=== PATIENT | male | born 1935 | race Caucasian/White ===

== ENCOUNTER 2017-10-13 08:40 | Inpatient (IN) | payer OTHER, BC ==
--- NOTE | 2017-10-13 09:02 | PDOC ---
History of Present Illness - General Chief Complaint: Urinary Problem Stated Complaint: urinary retention Time Seen by Provider: 10/13/17 08:41 History Source: Patient, Family Exam Limitations: No Limitations - History of Present Illness Initial Comments: 10/13/17 08:57 Patient is a bit hard of hearing, but it does not compromise good communication. His brother is with him and is assisting with the history. CHIEF COMPLAINT: Inability to urinate since this morning. HISTORY OF PRESENT ILLNESS: This is an 82-year-old man with a history of coronary artery disease in the past status post coronary stents. Patient was in his usual state of health until last evening. He decided not to go out for dinner because he developed shaking chills and rigors with teeth tattering. There was no fever however. This morning he got up from bed and tried to urinate but was only able to pass a few small dribbles. There was no blood. There was no dysuria. He continues to be unable to urinate and does have a mild sense of urgency. There is still no fever. No flank pain. No nausea or vomiting. He did have a urinary tract infection once many years ago. There is no history of prostate disease. REVIEW OF SYSTEMS: GENERAL/CONSTITUTIONAL: Positive chills last night. No fever. No further chills or fever today. No weakness. No weight change. HEAD, EYES, EARS, NOSE AND THROAT: Positive history of eye disease. No ear pain or discharge. No sore throat. CARDIOVASCULAR: No chest pain or shortness of breath. Positive history of coronary stents. RESPIRATORY: No cough, wheezing, or hemoptysis. Armor smoker, quit. GASTROINTESTINAL: No nausea, vomiting, diarrhea or constipation. No rectal bleeding. GENITOURINARY: Positive urinary hesitancy. Unable to pass urine. No dysuria. No hematuria. MUSCULOSKELETAL: No joint or muscle swelling or pain. No neck or back pain. SKIN AND BREASTS: No rash or easy bruising. NEUROLOGIC: No headache, vertigo, loss of consciousness, or loss of sensation. PSYCHIATRIC: No depression or anxiety. ENDOCRINE: No increased thirst. No abnormal weight change. HEMATOLOGIC/LYMPHATIC: No anemia, easy bleeding, or history of blood clots. ALLERGIC/IMMUNOLOGIC: No hives or skin allergy. No latex allergy. Past History - Past Medical History Allergies/Adverse Reactions: Allergies Allergy/AdvReac Type Severity Reaction Status Date / Time Penicillins Allergy Unknown Verified 10/13/17 08:42 Home Medications: Ambulatory Orders Allopurinol [Zyloprim -] 100 mg PO BID 08/27/14 Amlodipine Besylate [Norvasc -] 10 mg PO DAILY 08/27/14 Chlorthalidone 25 mg PO DAILY 08/27/14 Clopidogrel Bisulfate [Clopidogrel] 75 mg PO Q2D 08/27/14 Linagliptin [Tradjenta] 5 mg PO DAILY 08/27/14 Metoprolol Tartrate [Lopressor -] 25 mg PO BID 08/27/14 Tamsulosin HCl [Flomax] 0.4 mg PO DAILY 08/27/14 Valsartan [Diovan] 320 mg PO DAILY 08/27/14 Insulin Glargine,Hum.rec.anlog [Touestephanieo Solostar] 35 unit SQ DAILY 10/13/17 Lorazepam 0.5 mg PO QID PRN 10/13/17 Prednisolone 1% Ophthalmic [Pred Forte 1% -] 5 ml OP QID 10/13/17 Cardiac Disorders: Yes ([place], CAD with coronary stents.) COPD: No Diabetes: Yes GI Disorders: Yes (DIVERTICULOSIS) HTN: Yes Hypercholesterolemia: Yes - Surgical History Cardiac Surgery: Yes (2 STENTS) - Immunization History Immunization Up to Date: Yes - Suicide/Smoking/Psychosocial Hx Smoking History: Former smoker Have you smoked in the past 12 months: No Number of Cigarettes Smoked Daily: 0 Information on smoking cessation initiated: No Hx Alcohol Use: No Drug/Substance Use Hx: No Substance Use Type: None Hx Substance Use Treatment: No *Physical Exam - Vital Signs Last Vital Signs Temp Pulse Resp BP Pulse Ox 98.3 F 106 H 16 145/87 95 10/13/17 08:41 10/13/17 08:41 10/13/17 08:41 10/13/17 08:41 10/13/17 08:41 - Physical Exam Comments: 10/13/17 09:01 GENERAL: The patient is awake, alert, and fully oriented, in no acute distress. He is mildly hard of hearing, but able to communicate. HEAD: Normal with no signs of trauma. EYES: Right pupil with surgical changes. Left pupil normal, round and reactive to light, extraocular movements intact, sclera anicteric, conjunctiva clear. ENT: Ears normal, nares patent, oropharynx clear without exudates. Moist mucous membranes. NECK: Normal range of motion, supple without lymphadenopathy, JVD, or masses. LUNGS: Breath sounds equal, clear to auscultation bilaterally. No wheezes, and no crackles. HEART: Regular rate and rhythm, normal S1 and S2 without murmur, rub or gallop. ABDOMEN: Soft, nontender, normoactive bowel sounds. No guarding, no rebound. No masses. Minimal fullness in the suprapubic region. No tenderness in the suprapubic region. BACK: No CVA tenderness or flank tenderness. EXTREMITIES: Normal range of motion, trace pitting ankle edema. No clubbing or cyanosis. No cords, erythema, or tenderness. NEUROLOGICAL: Cranial nerves II through XII grossly intact. Normal speech, normal gait. PSYCH: Normal mood, normal affect. SKIN: Warm, Dry, normal turgor, no rashes or lesions noted. Bedside ultrasound with scan of the bladder reveals bladder to be 6 cm x 12 cm x 11 cm. Rangel catheter to be placed. Heart Score/ECG Review - ECG Intrepretation Comment:: 10/13/17 10:30 Twelve-lead EKG was performed. The rhythm is normal sinus rhythm with occasional immature atrial beats. The axis is leftward. The intervals are normal. There is poor R-wave progression in leads V1 and V2. There is transition in V5. There are no acute ST elevations or depressions. There are no abnormal T waves. Impression: Sinus rhythm with premature atrial beats, possible septal infarct, age indeterminate. Old EKG tracing requested. 10/13/17 11:17 There is no old EKG available for comparison. ED Treatment Course - LABORATORY CBC & Chemistry Diagram: 10/13/17 09:20 10/13/17 09:43 Medical Decision Making - Medical Decision Making 10/13/17 09:02 82-year-old man with no prior history of prostate disease, but one prior episode of UTI many years ago. Patient presents with urinary retention and difficulty passing urine, only able to pass small dribbles of urine. Rangel catheter to be placed based on bedside ultrasound showing some urinary retention. 10/13/17 11:18 White blood cell is markedly elevated with left shift. Urinalysis with greater than 100 white blood cells. Patient with probable urinary tract infection, possible bacteremia. He will be admitted for IV antibiotics. Levaquin ordered. Rangel catheter is in place with good drainage. Chemistry results still pending. Lactate pending. *DC/Admit/Observation/Transfer Diagnosis at time of Disposition: Rigors UTI (urinary tract infection) Qualifiers: Urinary tract infection type: acute cystitis Hematuria presence: without hematuria Qualified Code(s): N30.00 - Acute cystitis without hematuria - Discharge Dispostion Condition at time of disposition: Fair Admit: Yes Decision to Admit order Date/Time: 10/13/17 11:20 [facility] - Referrals - Patient Instructions - Post Discharge Activity
[2017-10-13 09:25] LABS: PH,URINE 5.5 (4.5-8); URINE BILIRUBIN Negative (NEGATIVE); URINE GLUCOSE (UA) Negative (NEGATIVE); URINE KETONE Negative (NEGATIVE); URINE LEUK ESTERASE Negative (NEGATIVE); URINE NITRITE Negative (NEGATIVE)
[2017-10-13 09:27] LABS: URINE APPEARANCE SL CLOUDY; URINE BLOOD 1+ (NEGATIVE); URINE COLOR AMBER; URINE PROTEIN 3+ (NEGATIVE)
[2017-10-13 09:28] LABS: MCH 31.1 pg (25.7-33.7); MCHC 33.8 g/dl (32.0-35.9); MEAN PLT VOLUME 8.6 fl (7.5-11.1); PLATELET COUNT 183 K/MM3 (134-434); RDW 14.1 % (11.9-15.9)
[2017-10-13 09:59] LABS: URINE BACTERIA MANY /hpf (NEGATIVE); URINE WBC >100 (0-2)
[2017-10-13] MEDS ORDERED: LEVOFLOXACIN 500 MG IVPB 500 MG/100 ML BAG IVPB ONE ×2 (09:59→10:37)
[2017-10-13 10:13] LABS: PLATELET ESTIMATE ADEQUATE
[2017-10-13 11:06] LABS: ALK PHOS 75 U/L (32-92); ANION GAP 9 (8-16); BILIRUBIN,TOTAL 1.4 mg/dl (0.2-1.0); CALCIUM 7.8 mg/dl (8.4-10.2); CO2 21 mmol/L (22-28); CREATININE 0.9 mg/dl (0.6-1.3); GLUCOSE,RANDOM 64 mg/dl (74-106); SGOT/AST 22 U/L (10-42); SGPT/ALT 17 U/L (10-40); TOT PROT 6.1 g/dl (6.4-8.3)
[2017-10-13] MEDS ORDERED: LORazepam 0.5 MG TABLET PO PRN ×2 (12:08→13:29)
[2017-10-13] MEDS ORDERED: ACETAMINOPHEN 325 MG TABLET (FP) PO PRN (12:11)
--- NOTE | 2017-10-13 12:11 | HP ---
CHIEF COMPLAINT: Unable to urinate PCP: Dr. Jax Calles ([place]) HISTORY OF PRESENT ILLNESS: This is an 82 year old male with a history of IDDM, HTN, HLD, and CAD s/p SD and stents x 2. He reports that many years ago he had some difficulty urinating, was seen by a urologist, and was placed on Flomax; he denies any other urologic history or recent symptoms. He presents today complaining of chills last night, followed by suprapubic pain and inability to urinate this morning. On arrival to the ED, u/s showed retention of approximately 600mL urine; Rangel catheter was inserted with relief. ER course was also notable for: (1) + SIRS criteria: HR 106, WBC 19 (2) UA indicative of UTI wiht >100 WBCs (3) Started on Levaquin (PCN allergy) Recent Travel: None PAST MEDICAL HISTORY: As above PAST SURGICAL HISTORY: Hip replacement x 6, knee replacement x 1, stents x 2, recent right eye surgery for repair of retinal detachment Social History: Retired biomedical engineer Smoking: Quit smoking "a few weeks ago"; smoked approx 1/2 pack day x 20 yrs Alcohol: Occasional Allergies Penicillins Allergy (Unknown, Verified 10/13/17 08:42) HOME MEDICATIONS: Home Medications Medication Instructions Recorded Allopurinol [Zyloprim -] 100 mg PO BID 08/27/14 Amlodipine Besylate [Norvasc -] 10 mg PO DAILY 08/27/14 Chlorthalidone 25 mg PO DAILY 08/27/14 Clopidogrel Bisulfate [Clopidogrel] 75 mg PO Q2D 08/27/14 Linagliptin [Tradjenta] 5 mg PO DAILY 08/27/14 Metoprolol Tartrate [Lopressor -] 25 mg PO BID 08/27/14 Tamsulosin HCl [Flomax] 0.4 mg PO DAILY 08/27/14 Valsartan [Diovan] 320 mg PO DAILY 08/27/14 Insulin Glargine,Hum.rec.anlog 35 unit SQ DAILY 10/13/17 [Mikel Gottlieb] Lorazepam 0.5 mg PO QID PRN 10/13/17 Prednisolone 1% Ophthalmic [Pred 5 ml OP QID 10/13/17 Forte 1% -] REVIEW OF SYSTEMS CONSTITUTIONAL: Chills/rigors, generalized weakness, fatigue Absent: chills, diaphoresis, loss of appetite, weight change HEENT: Absent: rhinorrhea, nasal congestion, throat pain, throat swelling, difficulty swallowing, mouth swelling, ear pain, eye pain, visual changes CARDIOVASCULAR: Absent: chest pain, syncope, palpitations, irregular heart rate, lightheadedness , peripheral edema RESPIRATORY: Absent: cough, shortness of breath, dyspnea with exertion, orthopnea, wheezing, stridor, hemoptysis GASTROINTESTINAL: Absent: abdominal pain, abdominal distension, nausea, vomiting, diarrhea, constipation, melena, hematochezia GENITOURINARY: Suprapubic pain, urinary retention Absent: hematuria, flank pain, genital pain MUSCULOSKELETAL: Absent: myalgia, arthralgia, joint swelling, back pain, neck pain SKIN: Absent: rash, itching, pallor HEMATOLOGIC/IMMUNOLOGIC: Absent: easy bleeding, easy bruising, lymphadenopathy, frequent infections ENDOCRINE: Absent: unexplained weight gain, unexplained weight loss, heat intolerance, cold intolerance NEUROLOGIC: Absent: headache, focal weakness or paresthesias, dizziness, unsteady gait, seizure, mental status changes, bladder or bowel incontinence PSYCHIATRIC: Absent: anxiety, depression, suicidal or homicidal ideation, hallucinations. PHYSICAL EXAMINATION Vital Signs - 24 hr 10/13/17 10/13/17 08:41 11:06 Temperature 98.3 F 98.9 F Pulse Rate 106 H Pulse Rate [ 105 H Right] Respiratory 16 Rate Blood Pressure 145/87 Blood Pressure 152/83 [Left Arm] O2 Sat by Pulse 95 94 L Oximetry (%) GENERAL: Awake, alert, and fully oriented, in no acute distress. HEAD: Normal with no signs of trauma. EYES: Pupils equal, round and reactive to light, extraocular movements intact, sclera anicteric, conjunctiva clear. No lid lag. EARS, NOSE, THROAT: Ears normal, nares patent, oropharynx clear without exudates. Moist mucous membranes. NECK: Normal range of motion, supple without lymphadenopathy, JVD, or masses. LUNGS: Breath sounds equal, clear to auscultation bilaterally. No wheezes, and no crackles. No accessory muscle use. HEART: Regular rate and rhythm, normal S1 and S2 without murmur, rub or gallop. ABDOMEN: Soft, nontender (including suprapubic region), not distended, normoactive bowel sounds, no guarding, no rebound, no masses. No hepatomegaly or splenomegaly. MUSCULOSKELETAL: Normal range of motion at all joints. No bony deformities or tenderness. No CVA tenderness. UPPER EXTREMITIES: 2+ pulses, warm, well-perfused. No cyanosis. No clubbing. No peripheral edema. LOWER EXTREMITIES: 2+ pulses, warm, well-perfused. No calf tenderness. No peripheral edema. NEUROLOGICAL: Cranial nerves II-XII intact. Normal speech. Gait not tested. PSYCHIATRIC: Cooperative. Good eye contact. Appropriate mood and affect. SKIN: Warm, dry, normal turgor, no rashes or lesions noted, normal capillary refill. Laboratory Results - last 24 hr 10/13/17 10/13/17 10/13/17 09:20 09:20 09:20 WBC 19.0 H D RBC 4.72 D Hgb 14.7 D Hct 43.5 D MCV 92.0 MCH 31.1 MCHC 33.8 RDW 14.1 Plt Count 183 MPV 8.6 Neutrophils % 80.0 D Neutrophils % (Manual) 80.0 Band Neutrophils % 5.0 Lymphocytes % 10.0 D Lymphocytes % (Manual) 10.0 Monocytes % 4.0 Monocytes % (Manual) 4 Eosinophils % 1.0 Eosinophils % (Manual) 1.0 Basophils % Advertising Solicitor Platelet Estimate Adequate Sodium Cancelled Potassium Cancelled Chloride Cancelled Carbon Dioxide Cancelled Anion Gap Cancelled BUN Cancelled Creatinine Cancelled Creat Clearance w eGFR Cancelled Random Glucose Cancelled Lactic Acid Calcium Cancelled Total Bilirubin Cancelled AST Cancelled ALT Cancelled Alkaline Phosphatase Cancelled Total Protein Cancelled Albumin Cancelled Urine Color Mary Urine Appearance Sl cloudy Urine pH 5.5 Ur Specific [place] 1.025 Urine Protein 3+ H Urine Glucose (UA) Negative Urine Ketones Negative Urine Blood 1+ H Urine Nitrite Negative Urine Bilirubin Negative Urine Urobilinogen 1.0 Ur Leukocyte Esterase Negative Urine RBC 5-10 Urine WBC >100 Ur Epithelial Cells Few Urine Bacteria Many 10/13/17 10/13/17 09:43 10:35 WBC RBC Hgb Hct MCV MCH MCHC RDW Plt Count MPV Neutrophils % Neutrophils % (Manual) Band Neutrophils % Lymphocytes % Lymphocytes % (Manual) Monocytes % Monocytes % (Manual) Eosinophils % Eosinophils % (Manual) Basophils % Platelet Estimate Sodium 136 Potassium 3.8 Chloride 106 Carbon Dioxide 21 L Anion Gap 9 BUN 14 D Creatinine 0.9 D Creat Clearance w eGFR > 60 Random Glucose 64 L D Lactic Acid 1.2 Calcium 7.8 L Total Bilirubin 1.4 H D AST 22 ALT 17 D Alkaline Phosphatase 75 Total Protein 6.1 L Albumin 3.0 L Urine Color Urine Appearance Urine pH Ur Specific [place] Urine Protein Urine Glucose (UA) Urine Ketones Urine Blood Urine Nitrite Urine Bilirubin Urine Urobilinogen Ur Leukocyte Esterase Urine RBC Urine WBC Ur Epithelial Cells Urine Bacteria ASSESSMENT/PLAN: 82 year old male with urinary retention and sepsis secondary to UTI. 1. Urinary retention -Approx 600 mL in bladder, Rangel inserted with relief of discomfort -Continue Flomax -Trial of void tomorrow 2. Sepsis secondary to UTI -Levaquin 500mg IVPB daily (PCN allergy) -Follow up blood and urine cultures -Trend WBC, fever curve -Hold diuretic for now in setting of sepsis 3. HTN -Continue Norvasc 4. DM -Continue glargine -ISS -Diabetic diet DISPO: Requires inpatient services. Temp 101.4 15:00 after Tylenol. Will give ibuprofen 400mg x 1. Visit type - Emergency Visit Emergency Visit: Yes ED Registration Date: 10/13/17 Care time: The patient presented to the Emergency Department on the above date and was hospitalized for further evaluation of their emergent condition. - New Patient This patient is new to me today: Yes Date on this admission: 10/14/17 - Critical Care Critical Care patient: No
[2017-10-13] MEDS ORDERED: ONDANSETRON 4 MG/2 ML VIAL IVPUSH PRN (12:12)
[2017-10-13] MEDS: PATIENT'S OWN MEDICATION (NON-FORMULARY) (Insulin Glargine,Hum.Rec.Anlog [Toujeo Solostar] SQ SCH (13:51)
[2017-10-13] MEDS ORDERED: TAMSULOSIN HCL 0.4 MG CAP.ER.24H (FP) ONE (13:52)
[2017-10-13] MEDS: TAMSULOSIN HCL 0.4 MG CAP.ER.24H (FP) PO SCH (13:56)
[2017-10-13] MEDS ORDERED: ACETAMINOPHEN 325 MG TABLET (FP) ONE (14:42)
[2017-10-13] MEDS ORDERED: ACETAMINOPHEN 325 MG TABLET (FP) PO ONE (14:49)
[2017-10-13] MEDS ORDERED: IBUPROFEN 400 MG TABLET (FP) PO ONE (15:15)
[2017-10-13 15:32] VITALS: BMI 30.8
[2017-10-13] MEDS: prednisoLONE ACETATE 1% OPHTH SUSP 5 ML BOTTLE OS SCH ×3 (17:58→21:20)
[2017-10-13] MEDS ORDERED: REFRIGERATED ANITBIOTICS ONE (18:20)
[2017-10-13] MEDS: DOCUSATE SODIUM 100 MG CAPSULE (FP) PO SCH ×2 (19:19→21:21)
[2017-10-13] MEDS: INSULIN SLIDING SCALE (NOVOLOG) 1 VIAL SQ SCH ×2 (19:22→22:44)
[2017-10-13] MEDS: METOPROLOL TARTRATE 25 MG TABLET (FP) PO SCH (21:21)
[2017-10-13] MEDS: ALLOPURINOL 100 MG TABLET (FP) PO SCH (21:22)
[2017-10-13] MEDS: HEPARIN NA (PORCINE) 5,000 UNITS/ML 1ML VIAL SQ SCH (21:22)
--- NOTE | 2017-10-13 22:28 | EKG ---
Test Reason : Blood Pressure : / mmHG Vent. Rate : 091 BPM Atrial Rate : 091 BPM P-R Int : 198 ms QRS Dur : 102 ms QT Int : 376 ms P-R-T Axes : 022 -46 022 degrees QTc Int : 462 ms SINUS RHYTHM WITH PREMATURE ATRIAL COMPLEXES LEFT AXIS DEVIATION SEPTAL INFARCT , AGE UNDETERMINED ABNORMAL ECG NO PREVIOUS ECGS AVAILABLE Confirmed by GIAN PILLAI MD ([id number]) on 10/13/2017 10:28:37 PM Referred By: DARIO IBARRA Confirmed By:GIAN PILLAI MD
[2017-10-14] MEDS: DOCUSATE SODIUM 100 MG CAPSULE (FP) PO SCH ×3 (06:44→22:18)
[2017-10-14] MEDS: INSULIN SLIDING SCALE (NOVOLOG) 1 VIAL SQ SCH ×4 (06:44→22:02)
[2017-10-14] MEDS: sitaGLIPtin PHOSPHATE 50 MG TABLET PO SCH (06:56)
[2017-10-14 09:08] LABS: EOSINOPHIL 0.9 % (0-4.5); MCH 31.2 pg (25.7-33.7); MCHC 33.5 g/dl (32.0-35.9); MEAN CELL VOLUME 93.1 fl (80-96); MEAN PLT VOLUME 10.5 fl (7.5-11.1); NEUTROPHILS 85.6 % (42.8-82.8); PLATELET COUNT 187 K/MM3 (134-434); RDW 14.1 % (11.9-15.9); WHITE BLOOD COUNT 20.5 K/mm3 (4.0-10.8)
--- NOTE | 2017-10-14 09:26 | PN ---
Physical Exam: SUBJECTIVE: Patient seen and examined. Subjective fever over night. Complaining of burning urethral pain. OBJECTIVE: WBC up slightly to 20.5. Vital Signs Period Temp Pulse Resp BP Sys/Cook Pulse Ox Last 24 Hr 97.9 F-101.2 F 72-105 18-20 120-160/59-86 91-94 GENERAL: The patient is awake, alert, and fully oriented, in some distress secondary to pain. HEAD: Normal with no signs of trauma. EYES: PERRL, extraocular movements intact, sclera anicteric, conjunctiva clear. No ptosis. ENT: Ears normal, nares patent, oropharynx clear without exudates, moist mucous membranes. NECK: Trachea midline, full range of motion, supple. LUNGS: Breath sounds equal, clear to auscultation bilaterally, no wheezes, no crackles, no accessory muscle use. HEART: Regular rate and rhythm, S1, S2 without murmur, rub or gallop. ABDOMEN: Soft, nontender, nondistended, normoactive bowel sounds, no guarding, no rebound, no hepatosplenomegaly, no masses. EXTREMITIES: 2+ pulses, warm, well-perfused, no edema. NEUROLOGICAL: Cranial nerves II through XII grossly intact. Normal speech, gait not observed. PSYCH: Normal mood, normal affect. SKIN: Warm, dry, normal turgor, no rashes or lesions noted Laboratory Results - last 24 hr 10/13/17 10/13/17 10/13/17 09:20 09:20 09:20 WBC 19.0 H D RBC 4.72 D Hgb 14.7 D Hct 43.5 D MCV 92.0 MCH 31.1 MCHC 33.8 RDW 14.1 Plt Count 183 MPV 8.6 Neutrophils % 80.0 D Neutrophils % (Manual) 80.0 Band Neutrophils % 5.0 Lymphocytes % 10.0 D Lymphocytes % (Manual) 10.0 Monocytes % 4.0 Monocytes % (Manual) 4 Eosinophils % 1.0 Eosinophils % (Manual) 1.0 Basophils % Marketing Development Manager Platelet Estimate Adequate Sodium Cancelled Potassium Cancelled Chloride Cancelled Carbon Dioxide Cancelled Anion Gap Cancelled BUN Cancelled Creatinine Cancelled Creat Clearance w eGFR Cancelled POC Glucometer Random Glucose Cancelled Lactic Acid Calcium Cancelled Total Bilirubin Cancelled AST Cancelled ALT Cancelled Alkaline Phosphatase Cancelled Total Protein Cancelled Albumin Cancelled Urine Color Mary Urine Appearance Sl cloudy Urine pH 5.5 Ur Specific [place] 1.025 Urine Protein 3+ H Urine Glucose (UA) Negative Urine Ketones Negative Urine Blood 1+ H Urine Nitrite Negative Urine Bilirubin Negative Urine Urobilinogen 1.0 Ur Leukocyte Esterase Negative Urine RBC 5-10 Urine WBC >100 Ur Epithelial Cells Few Urine Bacteria Many 10/13/17 10/13/17 10/13/17 09:43 10:35 17:38 WBC RBC Hgb Hct MCV MCH MCHC RDW Plt Count MPV Neutrophils % Neutrophils % (Manual) Band Neutrophils % Lymphocytes % Lymphocytes % (Manual) Monocytes % Monocytes % (Manual) Eosinophils % Eosinophils % (Manual) Basophils % Platelet Estimate Sodium 136 Potassium 3.8 Chloride 106 Carbon Dioxide 21 L Anion Gap 9 BUN 14 D Creatinine 0.9 D Creat Clearance w eGFR > 60 POC Glucometer 136 Random Glucose 64 L D Lactic Acid 1.2 Calcium 7.8 L Total Bilirubin 1.4 H D AST 22 ALT 17 D Alkaline Phosphatase 75 Total Protein 6.1 L Albumin 3.0 L Urine Color Urine Appearance Urine pH Ur Specific [place] Urine Protein Urine Glucose (UA) Urine Ketones Urine Blood Urine Nitrite Urine Bilirubin Urine Urobilinogen Ur Leukocyte Esterase Urine RBC Urine WBC Ur Epithelial Cells Urine Bacteria 10/13/17 10/14/17 10/14/17 21:18 05:48 06:00 WBC 20.5 H RBC 4.32 Hgb 13.5 Hct 40.2 MCV 93.1 MCH 31.2 MCHC 33.5 RDW 14.1 Plt Count 187 MPV 10.5 D Neutrophils % 85.6 H Neutrophils % (Manual) Band Neutrophils % Lymphocytes % 7.9 L D Lymphocytes % (Manual) Monocytes % 5.6 Monocytes % (Manual) Eosinophils % 0.9 Eosinophils % (Manual) Basophils % 0.0 Platelet Estimate Sodium Potassium Chloride Carbon Dioxide Anion Gap BUN Creatinine Creat Clearance w eGFR POC Glucometer 112 92 Random Glucose Lactic Acid Calcium Total Bilirubin AST ALT Alkaline Phosphatase Total Protein Albumin Urine Color Urine Appearance Urine pH Ur Specific [place] Urine Protein Urine Glucose (UA) Urine Ketones Urine Blood Urine Nitrite Urine Bilirubin Urine Urobilinogen Ur Leukocyte Esterase Urine RBC Urine WBC Ur Epithelial Cells Urine Bacteria Active Medications Generic Name Dose Route Start Last Admin Trade Name Freq PRN Reason Stop Dose Admin Acetaminophen 650 mg 10/13/17 12:11 Tylenol - PO Q4H PRN FEVER OR PAIN Allopurinol 100 mg 10/13/17 22:00 10/13/17 21:22 Zyloprim - PO 100 mg BID [facility] Administration Amlodipine Besylate 10 mg 10/14/17 10:00 Norvasc - PO DAILY [facility] Clopidogrel Bisulfate 75 mg 10/15/17 10:00 Plavix - PO Q2D [facility] Docusate Sodium 100 mg 10/13/17 14:00 10/14/17 06:44 Colace - PO 100 mg TID [facility] Administration Heparin Sodium (Porcine) 5,000 unit 10/13/17 22:00 10/13/17 21:22 Heparin - SQ 5,000 unit BID [facility] Administration Levofloxacin 500 mg in 100 mls @ 100 mls/hr 10/14/17 10:00 Levaquin 500 Mg Premixed Ivpb - IVPB 10/20/17 09:59 DAILY [facility] Insulin Aspart 1 vial 10/13/17 16:30 10/14/17 06:44 Novolog Vial Sliding Scale - SQ Not Given ACHS [facility] Protocol Lorazepam 0.5 mg 10/13/17 13:29 Ativan - PO 10/16/17 13:28 QID PRN ANXIETY Metoprolol Tartrate 25 mg 10/13/17 22:00 10/13/17 21:21 Lopressor - PO 25 mg BID [facility] Administration Non-Formulary Medication 35 unit 10/13/17 12:15 10/13/17 13:51 Insulin Glargine,Hum.Rec.Anlog [Mikel Gottlieb] SQ Not Given DAILY [facility] Ondansetron HCl 4 mg 10/13/17 12:12 Zofran Injection IVPUSH Q6H PRN NAUSEA Prednisolone Acetate 1 drop 10/13/17 14:00 10/13/17 21:20 Pred Forte 1% - OS 1 drop QID [facility] Administration Sitagliptin Phosphate 100 mg 10/14/17 07:00 10/14/17 06:56 Januvia - PO 100 mg DAILY@0700 [facility] Administration Tamsulosin HCl 0.4 mg 10/13/17 12:15 10/13/17 13:56 Flomax - PO 0.4 mg DAILY [facility] Administration Valsartan 320 mg 10/14/17 10:00 Diovan - PO DAILY [facility] ASSESSMENT/PLAN: 82 year old male with urinary retention and sepsis secondary to UTI. 1. Urinary retention -Maintain Rangel catheter for now -Continue Flomax -Trial of void when infection improving -Lidocaine jelly and oxycodone prn urethral pain 2. Sepsis secondary to UTI -WBC rising on Levaquin, changed to Ceftriaxone in consultation with ID -Follow up blood and urine cultures -Trend WBC, fever curve -Hold diuretic for now in setting of sepsis 3. HTN -Continue Norvasc 4. DM -Continue glargine -ISS -Diabetic diet DISPO: Requires inpatient services. Temp 101.4 15:00 after Tylenol. Will give ibuprofen 400mg x 1. Problem List - Problems (1) Sepsis Code(s): A41.9 - SEPSIS, UNSPECIFIED ORGANISM (2) UTI (urinary tract infection) Code(s): N39.0 - URINARY TRACT INFECTION, SITE NOT SPECIFIED Qualifiers: Urinary tract infection type: acute cystitis Hematuria presence: without hematuria Qualified Code(s): N30.00 - Acute cystitis without hematuria (3) CAD (coronary artery disease) Code(s): I25.10 - ATHSCL HEART DISEASE OF [place] CORONARY ARTERY W/O ANG PCTRS (4) Diabetes Code(s): E11.9 - TYPE 2 DIABETES MELLITUS WITHOUT COMPLICATIONS
[2017-10-14] MEDS ORDERED: PT OWN MED DRAWER 7, Y5N ONE ×6 (09:40→17:38)
[2017-10-14] MEDS ORDERED: REFRIGERATED ANITBIOTICS ONE ×2 (09:43→09:51)
[2017-10-14] MEDS: HEPARIN NA (PORCINE) 5,000 UNITS/ML 1ML VIAL SQ SCH ×2 (09:46→22:18)
[2017-10-14] MEDS: ALLOPURINOL 100 MG TABLET (FP) PO SCH ×2 (09:46→22:17)
[2017-10-14] MEDS: amLODIPine BESYLATE 10 MG TABLET (FP) PO SCH (09:46)
[2017-10-14] MEDS: prednisoLONE ACETATE 1% OPHTH SUSP 5 ML BOTTLE OS SCH ×4 (09:46→22:18)
[2017-10-14] MEDS: TAMSULOSIN HCL 0.4 MG CAP.ER.24H (FP) PO SCH (09:46)
[2017-10-14] MEDS: METOPROLOL TARTRATE 25 MG TABLET (FP) PO SCH ×2 (09:46→22:17)
[2017-10-14] MEDS: PATIENT'S OWN MEDICATION (NON-FORMULARY) (Insulin Glargine,Hum.Rec.Anlog [Toujeo Solostar] SQ SCH (09:54)
[2017-10-14 09:58] LABS: ALBUMIN 2.5 g/dl (3.5-5.0); ALK PHOS 86 U/L (32-92); ANION GAP 9 (8-16); BILIRUBIN,TOTAL 1.4 mg/dl (0.2-1.0); CALCIUM 7.6 mg/dl (8.4-10.2); CO2 21 mmol/L (22-28); GLUCOSE,RANDOM 71 mg/dl (74-106); MAGNESIUM 1.7 mg/dL (1.8-2.4); SGOT/AST 23 U/L (10-42); SGPT/ALT 20 U/L (10-40); TOT PROT 5.3 g/dl (6.4-8.3)
[2017-10-14] MEDS ORDERED: LEVOFLOXACIN 500 MG IVPB 500 MG/100 ML BAG IVPB SCH ×2 (10:00)
[2017-10-14] MEDS ORDERED: PATIENT'S OWN MEDICATION (NON-FORMULARY) (Linagliptin [Tradjenta] 5 MG) PO SCH (10:00)
[2017-10-14] MEDS: CEFTRIAXONE 1 GM in DEXTROSE 5%-WATER - 50 ML IVPB SCH (10:17)
[2017-10-14] MEDS: VALSARTAN 40 MG TABLET (FP) PO SCH (11:36)
[2017-10-14] MEDS ORDERED: LIDOCAINE HCL 2% JELLY (5 ML/TUBE) TP ONE (11:46)
[2017-10-14] MEDS ORDERED: oxyCODONE HCL 5 MG TABLET PO ONE (12:06)
[2017-10-14] MEDS ORDERED: POTASSIUM CHLORIDE TABS 20 MEQ TABLET.ER (FP) PO ONE (13:03)
[2017-10-14] MEDS: oxyCODONE HCL 5 MG TABLET PO PRN (17:27)
[2017-10-14] MEDS ORDERED: oxyCODONE HCL 5 MG TABLET ONE (17:27)
--- NOTE | 2017-10-14 18:51 | PN ---
Progress Note (short form) - Note Progress Note: ID consult dictated imp/reccd 82 year old man admitted with acute urinary retention- vásquez placed in Ed and given levaquin he had fever overnight spoke with hospitalist- we elected to switch to ceftriaxone he c/o vásquez discomfort otherwise okay remote history of UTI with urinary retention many years ago no UTI since pen allergy- rash uti/urinary retention pen allergy continue rocephin f/u cultures Problem List - Problems (1) UTI (urinary tract infection) Code(s): N39.0 - URINARY TRACT INFECTION, SITE NOT SPECIFIED Qualifiers: Urinary tract infection type: acute cystitis Hematuria presence: without hematuria Qualified Code(s): N30.00 - Acute cystitis without hematuria (2) Acute urinary retention Code(s): R33.8 - OTHER RETENTION OF URINE (3) Penicillin allergy Code(s): Z88.0 - ALLERGY STATUS TO PENICILLIN
--- NOTE | 2017-10-14 21:27 | CONS ---
DATE OF CONSULTATION: DATE OF DICTATION: 10/14/2017 INFECTIOUS DISEASE CONSULTATION HISTORY OF PRESENT ILLNESS: This is an 82-year-old man who presented on the to the emergency department with complaints of acute onset of urinary retention. He had woken up yesterday morning and had been unable to urinate. At dinnertime, he developed shaking chills and rigors, and he came to the emergency room. He has a history once a remote history of acute urinary retention and UTI many years ago. He reports he was treated at [facility]. He is allergic to PENICILLIN; he gets itchy and gets a rash. There is no shortness of breath or anaphylactics. His medications at home include allopurinol, amlodipine, chlorthalidone, Plavix, Tradjenta, Lopressor, Flomax, Diovan, insulin, lorazepam, and prednisolone eyedrops. PAST MEDICAL HISTORY: Notable for coronary artery disease. He has 2 stents. He has history of diabetes, diverticulosis, hypertension, hypercholesterolemia. He had some trauma to his right eye, and he has now had 5 eye surgeries, the last a month ago. SURGICAL HISTORY: Notable for the stent. As well he has had 3 surgeries on each hip. He has had surgeries on both his knees. He has never had any intraabdominal surgery. SOCIAL HISTORY: He is and lives with his . He is a former smoker. REVIEW OF SYSTEMS: Except for the pain at the Rangel site, he has no chest pain, he has no abdominal pain, he has no nausea, vomiting, diarrhea. PHYSICAL EXAMINATION: General: Vital signs: His T-max was 101.2, current temperature is 98.5, pulse is 72, blood pressure 134/72, respiratory rate 20, saturating 97%. HEENT: Normocephalic. He has a patch on his right eye. His left eye is okay. He has no thrush. Neck: Supple. Lungs: Clear to auscultation. Heart: Regular rate and rhythm. Abdomen: Soft, he has no suprapubic or CVA tenderness. Extremities: Without edema. LABORATORY: White count is 20,000, hemoglobin 13.5, platelets of 187. BUN and creatinine are 15 and 1.0. His total bilirubin is 1.4. His urinalysis is greater than 100 white cells. Culture is growing lactose fermenting gram-negative bacilli, blood cultures are negative. Chest x-ray is no acute disease. IMPRESSION: In summary, this is an elderly man who has not been on recent antibiotics, has not had a urinary tract infection for many, many years, who is now admitted with acute urinary retention and urinary tract infection with a PENICILLIN allergy. I spoke with the hospitalist earlier this morning; we elected to switch him from Levaquin to ceftriaxone, which is currently on and tolerated. Would continue ceftriaxone while awaiting cultures. If he continues to have urinary retention, he may require urology consult. Further recommendations to follow. RAHEEM SOLANO M.D. [id number]
[2017-10-14] MEDS: POLYETHYLENE GLYCOL 3350 119 GM BTL PO SCH (22:18)
[2017-10-15] MEDS: sitaGLIPtin PHOSPHATE 50 MG TABLET PO SCH (06:02)
[2017-10-15] MEDS: DOCUSATE SODIUM 100 MG CAPSULE (FP) PO SCH ×3 (06:02→21:40)
[2017-10-15] MEDS: INSULIN SLIDING SCALE (NOVOLOG) 1 VIAL SQ SCH ×4 (06:03→21:46)
--- NOTE | 2017-10-15 07:58 | PN ---
Physical Exam: SUBJECTIVE: Patient seen and examined, reports burning sensation to urethral meatus, patient denies fever. OBJECTIVE: Patient is an 82 year old male with a history of IDDM, HTN, HLD, and CAD s/p GA (stents x 2), patient was admitted from the emergency department for sepsis secondary to urinary tract infection. Vital Signs Period Temp Pulse Resp BP Sys/Cook Pulse Ox Last 24 Hr 97.6 F-98.7 F 70-79 20-20 121-149/64-72 92-97 GENERAL: The patient is awake, alert, and fully oriented, in no acute distress. HEAD: Normal with no signs of trauma. EYES: PERRL, extraocular movements intact, sclera anicteric, conjunctiva clear. No ptosis. ENT: Ears normal, nares patent, oropharynx clear without exudates, moist mucous membranes. NECK: Trachea midline, full range of motion, supple. LUNGS: Breath sounds equal, clear to auscultation bilaterally, no wheezes, no crackles, no accessory muscle use. HEART: Regular rate and rhythm, S1, S2 without murmur, rub or gallop. ABDOMEN: Soft, suprapubic tenderness, nondistended, normoactive bowel sounds, no guarding, no rebound, no hepatosplenomegaly, no masses. : vásquez, clear yellow urine EXTREMITIES: 2+ pulses, warm, well-perfused, no edema. NEUROLOGICAL: Cranial nerves II through XII grossly intact. Normal speech, gait not observed. PSYCH: Normal mood, normal affect. SKIN: Warm, dry, normal turgor, no rashes or lesions noted Laboratory Results - last 24 hr CBC WBC 13.0 K/mm3 (4.0-10.8) H D 10/15/17 08:00 RBC 3.98 M/mm3 (4.00-5.60) L 10/15/17 08:00 Hgb 12.6 GM/dl (11.7-16.9) 10/15/17 08:00 Hct 37.0 % (35.4-49) 10/15/17 08:00 MCV 92.9 fl (80-96) 10/15/17 08:00 MCH 31.6 pg (25.7-33.7) 10/15/17 08:00 MCHC 34.1 g/dl (32.0-35.9) 10/15/17 08:00 RDW 13.9 % (11.9-15.9) 10/15/17 08:00 Plt Count 159 K/MM3 (134-434) 10/15/17 08:00 MPV 9.1 fl (7.5-11.1) D 10/15/17 08:00 Neutrophils % 87.2 % (42.8-82.8) H 10/15/17 08:00 Neutrophils % (Manual) 80.0 % (42.8-82.8) 10/13/17 09:20 Band Neutrophils % 5.0 % (0-10) 10/13/17 09:20 Lymphocytes % 7.6 % (8-40) L 10/15/17 08:00 Lymphocytes % (Manual) 10.0 % (8-40) 10/13/17 09:20 Monocytes % 3.6 % (3.8-10.2) L 10/15/17 08:00 Monocytes % (Manual) 4 % (3.8-10.2) 10/13/17 09:20 Eosinophils % 1.3 % (0-4.5) 10/15/17 08:00 Eosinophils % (Manual) 1.0 % (0-4.5) 10/13/17 09:20 Basophils % 0.3 % (0-2.0) D 10/15/17 08:00 Platelet Estimate Adequate 10/13/17 09:20 CMP Sodium 133 mmol/L (136-145) L 10/15/17 08:00 Potassium 3.5 mmol/L (3.5-5.1) 10/15/17 08:00 Chloride 106 mmol/L (98-107) 10/15/17 08:00 Carbon Dioxide 20 mmol/L (22-28) L 10/15/17 08:00 Anion Gap 7 (8-16) L 10/15/17 08:00 BUN 18 mg/dl (7-18) 10/15/17 08:00 Creatinine 1.0 mg/dl (0.6-1.3) 10/15/17 08:00 Creat Clearance w eGFR > 60 (>60) 10/15/17 08:00 POC Glucometer 124 UNITS (80-120) 10/15/17 11:54 Random Glucose 130 mg/dl (74-106) H D 10/15/17 08:00 Lactic Acid 1.2 mmol/L (0.4-2.0) 10/13/17 10:35 Calcium 7.4 mg/dl (8.4-10.2) L 10/15/17 08:00 Phosphorus 2.8 mg/dl (2.5-4.6) 10/15/17 08:00 Magnesium 1.7 mg/dL (1.8-2.4) L 10/15/17 08:00 Total Bilirubin 0.6 mg/dl (0.2-1.0) D 10/15/17 08:00 AST 27 U/L (10-42) 10/15/17 08:00 ALT 22 U/L (10-40) 10/15/17 08:00 Alkaline Phosphatase 88 U/L (32-92) 10/15/17 08:00 Total Protein 4.9 g/dl (6.4-8.3) L 10/15/17 08:00 Albumin 2.2 g/dl (3.5-5.0) L 10/15/17 08:00 Active Medications Generic Name Dose Route Start Last Admin Trade Name Freq PRN Reason Stop Dose Admin Acetaminophen 650 mg 10/13/17 12:11 Tylenol - PO Q4H PRN FEVER OR PAIN Allopurinol 100 mg 10/13/17 22:00 10/14/17 22:17 Zyloprim - PO 100 mg BID SONJA Administration Amlodipine Besylate 10 mg 10/14/17 10:00 10/14/17 09:46 Norvasc - PO 10 mg DAILY SONJA Administration Clopidogrel Bisulfate 75 mg 10/15/17 10:00 Plavix - PO Q2D SONJA Docusate Sodium 100 mg 10/13/17 14:00 10/15/17 06:02 Colace - PO 100 mg TID SONJA Administration Heparin Sodium (Porcine) 5,000 unit 10/13/17 22:00 10/14/17 22:18 Heparin - SQ 5,000 unit BID SONJA Administration Ceftriaxone Sodium 1 gm/ 50 mls @ 100 mls/hr 10/14/17 10:00 10/14/17 10:17 Dextrose IVPB 100 mls/hr DAILY SONJA Administration Insulin Aspart 1 vial 10/13/17 16:30 10/15/17 06:03 Novolog Vial Sliding Scale - SQ Not Given ACHS [facility] Protocol Lorazepam 0.5 mg 10/13/17 13:29 Ativan - PO 10/16/17 13:28 QID PRN ANXIETY Metoprolol Tartrate 25 mg 10/13/17 22:00 10/14/17 22:17 Lopressor - PO 25 mg BID SONJA Administration Non-Formulary Medication 35 unit 10/13/17 12:15 10/14/17 09:54 Insulin Glargine,Hum.Rec.Anlog [Toucabrera Solostar] SQ 35 unit DAILY SONJA Administration Ondansetron HCl 4 mg 10/13/17 12:12 Zofran Injection IVPUSH Q6H PRN NAUSEA Oxycodone HCl 5 mg 10/14/17 12:49 10/14/17 17:27 Roxicodone - PO 5 mg Q6H PRN Administration PAIN Polyethylene Glycol 17 gm 10/14/17 22:00 10/14/17 22:18 Miralax (For Daily Use) - PO Not Given BID [facility] Prednisolone Acetate 1 drop 10/13/17 14:00 10/14/17 22:18 Pred Forte 1% - OS 1 drop QID SONJA Administration Sitagliptin Phosphate 100 mg 10/14/17 07:00 10/15/17 06:02 Januvia - PO 100 mg DAILY@0700 SONJA Administration Tamsulosin HCl 0.4 mg 10/13/17 12:15 10/14/17 09:46 Flomax - PO 0.4 mg DAILY SONJA Administration Valsartan 320 mg 10/14/17 10:00 10/14/17 11:36 Diovan - PO 320 mg DAILY SONJA Administration Microbiology 10/13/17 10:40 Blood - Peripheral Venous Blood Culture - Preliminary NO GROWTH OBTAINED AFTER 48 HOURS, INCUBATION TO CONTINUE FOR 3 DAYS. 10/13/17 10:35 Blood - Peripheral Venous Blood Culture - Preliminary NO GROWTH OBTAINED AFTER 48 HOURS, INCUBATION TO CONTINUE FOR 3 DAYS. 10/13/17 09:20 Urine - Urine Clean Catch Urine Culture - Final Klebsiella Oxytoca ASSESSMENT/PLAN: 1. Urinary retention/uti - continue Vásquez catheter for now, ct scan of abd/pelvis w/o contrast ordered -Continue Flomax - leukocytosis improving, patient is afebrile -Lidocaine jelly and oxycodone prn urethral pain 2.ID Sepsis secondary to UTI - leukocytosis improving, continue Ceftriaxone - urine culture + klep oxytoca, senstive to rocephin - ID consulted and following 3. cardiovascular HTN -Continue Norvasc 4. endo DM -Continue glargine -ISS -Diabetic diet 5. f/e/n hypomagnesemia and hypokalemia - replete potassium and magnesium - repeat bmp at 1800 DISPO: Requires inpatient services. Visit type - Emergency Visit Emergency Visit: Yes ED Registration Date: 10/13/17 Care time: The patient presented to the Emergency Department on the above date and was hospitalized for further evaluation of their emergent condition. - New Patient This patient is new to me today: Yes Date on this admission: 10/15/17 - Critical Care Critical Care patient: No - Discharge Referral Referred to [facility] Med P[facility] No
[2017-10-15] MEDS ORDERED: PT OWN MED DRAWER 7, Y5N ONE ×2 (09:21→21:25)
[2017-10-15 10:11] LABS: EOSINOPHIL 1.3 % (0-4.5); MEAN PLT VOLUME 9.1 fl (7.5-11.1)
[2017-10-15 10:14] LABS: BASOPHIL 0.3 % (0-2.0); MCH 31.6 pg (25.7-33.7); MCHC 34.1 g/dl (32.0-35.9); MEAN CELL VOLUME 92.9 fl (80-96); NEUTROPHILS 87.2 % (42.8-82.8); PLATELET COUNT 159 K/MM3 (134-434); RDW 13.9 % (11.9-15.9)
[2017-10-15] MEDS: CEFTRIAXONE 1 GM in DEXTROSE 5%-WATER - 50 ML IVPB SCH (10:21)
[2017-10-15] MEDS: TAMSULOSIN HCL 0.4 MG CAP.ER.24H (FP) PO SCH (10:21)
[2017-10-15] MEDS: prednisoLONE ACETATE 1% OPHTH SUSP 5 ML BOTTLE OS SCH ×3 (10:21→21:41)
[2017-10-15] MEDS: amLODIPine BESYLATE 10 MG TABLET (FP) PO SCH (10:22)
[2017-10-15] MEDS: CLOPIDOGREL BISULFATE 75 MG TABLET (FP) PO SCH (10:22)
[2017-10-15] MEDS: ALLOPURINOL 100 MG TABLET (FP) PO SCH ×2 (10:22→21:41)
[2017-10-15] MEDS: METOPROLOL TARTRATE 25 MG TABLET (FP) PO SCH ×2 (10:22→21:40)
[2017-10-15] MEDS: HEPARIN NA (PORCINE) 5,000 UNITS/ML 1ML VIAL SQ SCH ×2 (10:22→21:40)
[2017-10-15] MEDS: POLYETHYLENE GLYCOL 3350 119 GM BTL PO SCH ×2 (10:24→21:40)
[2017-10-15] MEDS: PATIENT'S OWN MEDICATION (NON-FORMULARY) (Insulin Glargine,Hum.Rec.Anlog [Toujeo Solostar] SQ SCH (10:24)
[2017-10-15] MEDS: VALSARTAN 40 MG TABLET (FP) PO SCH (10:34)
[2017-10-15 11:17] LABS: ALBUMIN 2.2 g/dl (3.5-5.0); ALK PHOS 88 U/L (32-92); ANION GAP 7 (8-16); BILIRUBIN,TOTAL 0.6 mg/dl (0.2-1.0); CALCIUM 7.4 mg/dl (8.4-10.2); CO2 20 mmol/L (22-28); GLUCOSE,RANDOM 130 mg/dl (74-106); MAGNESIUM 1.7 mg/dL (1.8-2.4); PHOSPHOROUS 2.8 mg/dl (2.5-4.6); SGOT/AST 27 U/L (10-42); SGPT/ALT 22 U/L (10-40); TOT PROT 4.9 g/dl (6.4-8.3)
[2017-10-15] MEDS: oxyCODONE HCL 5 MG TABLET PO PRN ×2 (11:37→21:54)
[2017-10-15] MEDS ORDERED: MAGNESIUM SULF 50% (8.12 MEQ/2 ML-1 GM VIAL) IVPB ONE (12:15)
[2017-10-15] MEDS: POTASSIUM CHLORIDE TABS 20 MEQ TABLET.ER (FP) PO SCH (13:04)
[2017-10-15] MEDS: LIDOCAINE HCL 2% JELLY (5 ML/TUBE) TP ONE ×2 (17:13→19:48)
[2017-10-16] MEDS: METRONIDAZOLE 500 MG PREMIXED 500 MG/100 ML MG IVPB SCH ×3 (01:39→18:39)
[2017-10-16] MEDS: sitaGLIPtin PHOSPHATE 50 MG TABLET PO SCH (06:26)
[2017-10-16] MEDS: DOCUSATE SODIUM 100 MG CAPSULE (FP) PO SCH ×3 (06:26→21:46)
[2017-10-16 07:38] LABS: MCH 32.5 pg (25.7-33.7); MCHC 34.8 g/dl (32.0-35.9); MEAN CELL VOLUME 93.4 fl (80-96); MEAN PLT VOLUME 8.6 fl (7.5-11.1); NEUTROPHILS 71.8 % (42.8-82.8); PLATELET COUNT 164 K/MM3 (134-434); RDW 14.1 % (11.9-15.9); WHITE BLOOD COUNT 7.7 K/mm3 (4.0-10.8)
[2017-10-16 07:55] LABS: ALBUMIN 2.1 g/dl (3.5-5.0); ALK PHOS 87 U/L (32-92); ANION GAP 4 (8-16); BILIRUBIN,TOTAL 0.4 mg/dl (0.2-1.0); CALCIUM 7.1 mg/dl (8.4-10.2); CO2 20 mmol/L (22-28); CREATININE 1.1 mg/dl (0.6-1.3); GLUCOSE,RANDOM 112 mg/dl (74-106); MAGNESIUM 2.1 mg/dL (1.8-2.4); SGOT/AST 31 U/L (10-42); SGPT/ALT 26 U/L (10-40); TOT PROT 4.7 g/dl (6.4-8.3)
--- NOTE | 2017-10-16 09:07 | PN ---
Physical Exam: SUBJECTIVE: Patient seen and examined, reports discomfort from vásquez cather, denies any tactile fever. OBJECTIVE: Patient is an 82 year old male with a history of IDDM, HTN, HLD, and CAD s/p AR (stents x 2), patient was admitted from the emergency department for sepsis secondary to urinary tract infection and acute sigmoid diverticulitis. Vital Signs Period Temp Pulse Resp BP Sys/Cook Pulse Ox Last 24 Hr 97.3 F-97.7 F 55-69 18-20 107-115/55-69 94-96 GENERAL: The patient is awake, alert, and fully oriented, in no acute distress. HEAD: Normal with no signs of trauma. EYES: PERRL, extraocular movements intact, sclera anicteric, conjunctiva clear. No ptosis. ENT: Ears normal, nares patent, oropharynx clear without exudates, moist mucous membranes. NECK: Trachea midline, full range of motion, supple. LUNGS: Breath sounds equal, clear to auscultation bilaterally, no wheezes, no crackles, no accessory muscle use. HEART: Regular rate and rhythm, S1, S2 without murmur, rub or gallop. ABDOMEN: Soft, obese, suprapubic tenderness, nondistended, normoactive bowel sounds, no guarding, no rebound, no hepatosplenomegaly, no masses. EXTREMITIES: 2+ pulses, warm, well-perfused, no edema. NEUROLOGICAL: Cranial nerves II through XII grossly intact. Normal speech, gait not observed. PSYCH: Normal mood, normal affect. SKIN: Warm, dry, normal turgor, no rashes or lesions noted Laboratory Results - last 24 hr 10/15/17 10/15/17 10/15/17 08:00 08:00 11:54 WBC 13.0 H D RBC 3.98 L Hgb 12.6 Hct 37.0 MCV 92.9 MCH 31.6 MCHC 34.1 RDW 13.9 Plt Count 159 MPV 9.1 D Neutrophils % 87.2 H Lymphocytes % 7.6 L Monocytes % 3.6 L Eosinophils % 1.3 Basophils % 0.3 D Sodium 133 L Potassium 3.5 Chloride 106 Carbon Dioxide 20 L Anion Gap 7 L BUN 18 Creatinine 1.0 Creat Clearance w eGFR > 60 POC Glucometer 124 Random Glucose 130 H D Calcium 7.4 L Phosphorus 2.8 Magnesium 1.7 L Total Bilirubin 0.6 D AST 27 ALT 22 Alkaline Phosphatase 88 Total Protein 4.9 L Albumin 2.2 L 10/15/17 10/15/17 10/16/17 17:06 21:45 06:23 WBC RBC Hgb Hct MCV MCH MCHC RDW Plt Count MPV Neutrophils % Lymphocytes % Monocytes % Eosinophils % Basophils % Sodium Potassium Chloride Carbon Dioxide Anion Gap BUN Creatinine Creat Clearance w eGFR POC Glucometer 131 107 104 Random Glucose Calcium Phosphorus Magnesium Total Bilirubin AST ALT Alkaline Phosphatase Total Protein Albumin 10/16/17 10/16/17 07:30 07:30 WBC 7.7 D RBC 3.85 L Hgb 12.5 Hct 35.9 MCV 93.4 MCH 32.5 MCHC 34.8 RDW 14.1 Plt Count 164 MPV 8.6 Neutrophils % 71.8 Lymphocytes % 15.4 D Monocytes % 6.8 D Eosinophils % 4.0 D Basophils % 2.0 D Sodium 133 L Potassium 3.7 Chloride 109 H Carbon Dioxide 20 L Anion Gap 4 L BUN 19 H Creatinine 1.1 Creat Clearance w eGFR > 60 POC Glucometer Random Glucose 112 H Calcium 7.1 L Phosphorus Magnesium 2.1 D Total Bilirubin 0.4 D AST 31 ALT 26 Alkaline Phosphatase 87 Total Protein 4.7 L Albumin 2.1 L Active Medications Generic Name Dose Route Start Last Admin Trade Name Freq PRN Reason Stop Dose Admin Acetaminophen 650 mg 10/13/17 12:11 10/15/17 11:37 Tylenol - PO 650 mg Q4H PRN Administration FEVER OR PAIN Allopurinol 100 mg 10/13/17 22:00 10/15/17 21:41 Zyloprim - PO 100 mg BID SONJA Administration Amlodipine Besylate 10 mg 10/14/17 10:00 10/15/17 10:22 Norvasc - PO 10 mg DAILY SONJA Administration Clopidogrel Bisulfate 75 mg 10/15/17 10:00 10/15/17 10:22 Plavix - PO 75 mg Q2D SONJA Administration Docusate Sodium 100 mg 10/13/17 14:00 10/16/17 06:26 Colace - PO 100 mg TID SONJA Administration Heparin Sodium (Porcine) 5,000 unit 10/13/17 22:00 10/15/17 21:40 Heparin - SQ 5,000 unit BID SONJA Administration Ceftriaxone Sodium 1 gm/ 50 mls @ 100 mls/hr 10/14/17 10:00 10/15/17 10:21 Dextrose IVPB 100 mls/hr DAILY SONJA Administration Metronidazole 500 mg in 100 mls @ 100 mls/hr 10/16/17 02:00 10/16/17 01:39 Flagyl 500mg Premixed Ivpb - IVPB 100 mls/hr Q8H-IV SONJA Administration Insulin Aspart 1 vial 10/13/17 16:30 10/15/17 21:46 Novolog Vial Sliding Scale - SQ Not Given ACHS SONJA Protocol Lorazepam 0.5 mg 10/13/17 13:29 10/15/17 21:53 Ativan - PO 10/16/17 13:28 0.5 mg QID PRN Administration ANXIETY Metoprolol Tartrate 25 mg 10/13/17 22:00 10/15/17 21:40 Lopressor - PO 25 mg BID SONJA Administration Non-Formulary Medication 35 unit 10/13/17 12:15 10/15/17 10:24 Insulin Glargine,Hum.Rec.Anlog [Mikel Gottlieb] SQ 35 unit DAILY SONJA Administration Ondansetron HCl 4 mg 10/13/17 12:12 Zofran Injection IVPUSH Q6H PRN NAUSEA Oxycodone HCl 5 mg 10/14/17 12:49 10/15/17 21:54 Roxicodone - PO 5 mg Q6H PRN Administration PAIN Polyethylene Glycol 17 gm 10/14/17 22:00 10/15/17 21:40 Miralax (For Daily Use) - PO 17 grams BID SONJA Administration Potassium Chloride 20 meq 10/15/17 11:45 10/15/17 13:04 K-Dur - PO 20 meq DAILY SONJA Administration Prednisolone Acetate 1 drop 10/15/17 22:00 10/15/17 21:41 Pred Forte 1% - OS 1 drop BID SONJA Administration Sitagliptin Phosphate 100 mg 10/14/17 07:00 10/16/17 06:26 Januvia - PO 100 mg DAILY@0700 SONJA Administration Tamsulosin HCl 0.4 mg 10/13/17 12:15 10/15/17 10:21 Flomax - PO 0.4 mg DAILY SONJA Administration Valsartan 320 mg 10/15/17 10:34 Diovan - PO DAILY SONJA Microbiology 10/13/17 10:40 Blood - Peripheral Venous Blood Culture - Preliminary NO GROWTH OBTAINED AFTER 48 HOURS, INCUBATION TO CONTINUE FOR 3 DAYS. 10/13/17 10:35 Blood - Peripheral Venous Blood Culture - Preliminary NO GROWTH OBTAINED AFTER 48 HOURS, INCUBATION TO CONTINUE FOR 3 DAYS. 10/13/17 09:20 Urine - Urine Clean Catch Urine Culture - Final Klebsiella Oxytoca IMAGING ct scan of abd/pelvis: acute sigmoid divertiuliits, 3.8cm infrarenal aortic aneursym chest xray: no acute pathology ASSESSMENT/PLAN: 1. Urinary retention/uti - d/c Vásquez catheter, void trial, urine culture noted, +klep oxytoca, sensitive to rocephin and levaquin -Continue Flomax - leukocytosis improving, patient is afebrile - patient will require outpatient follow up with urology 2.ID Sepsis secondary to UTI vs diverticulitis - resoloved, continue rocephin and levaquin - ID consulted and following 3. cardiovascular HTN -Continue Norvasc - ct scan reviewed notable for 3.8cm infrarenal aortic aneryusm, case discused with Dr Hogan, vascular surgeon, pt will require strict follow up and serial abd ultrasound every 6 months CAD - continue home dose plavix 4. endo DM -Continue glargine -ISS -Diabetic diet 5. GI acute sigmoid diverticulits - pt denies any abd pain, continue levaquin and flagyl - will require outpatient follow up with GI, Dr Fernandez for colonscopy 6. f/e/n - regular diet DISPO: Requires inpatient services. Visit type - Emergency Visit Emergency Visit: Yes ED Registration Date: 10/13/17 Care time: The patient presented to the Emergency Department on the above date and was hospitalized for further evaluation of their emergent condition. - New Patient This patient is new to me today: No - Critical Care Critical Care patient: No - Discharge Referral Referred to [facility] Med P.C.: No
[2017-10-16] MEDS: INSULIN SLIDING SCALE (NOVOLOG) 1 VIAL SQ SCH ×4 (09:20→23:06)
[2017-10-16] MEDS ORDERED: PT OWN MED DRAWER 7, Y5N ONE ×3 (09:25→21:43)
[2017-10-16] MEDS ORDERED: REFRIGERATED ANITBIOTICS ONE ×2 (09:26→09:53)
[2017-10-16] MEDS: TAMSULOSIN HCL 0.4 MG CAP.ER.24H (FP) PO SCH (09:31)
[2017-10-16] MEDS: POTASSIUM CHLORIDE TABS 20 MEQ TABLET.ER (FP) PO SCH (09:31)
[2017-10-16] MEDS: HEPARIN NA (PORCINE) 5,000 UNITS/ML 1ML VIAL SQ SCH ×2 (09:32→21:45)
[2017-10-16] MEDS: amLODIPine BESYLATE 10 MG TABLET (FP) PO SCH (09:32)
[2017-10-16] MEDS: METOPROLOL TARTRATE 25 MG TABLET (FP) PO SCH ×2 (09:32→21:46)
[2017-10-16] MEDS: PATIENT'S OWN MEDICATION (NON-FORMULARY) (Insulin Glargine,Hum.Rec.Anlog [Toujeo Solostar] SQ SCH (09:32)
[2017-10-16] MEDS: ALLOPURINOL 100 MG TABLET (FP) PO SCH ×2 (09:32→21:46)
[2017-10-16] MEDS: prednisoLONE ACETATE 1% OPHTH SUSP 5 ML BOTTLE OS SCH ×2 (09:33→21:46)
[2017-10-16] MEDS: VALSARTAN 160 MG TABLET (UD) PO SCH (09:33)
[2017-10-16] MEDS: CEFTRIAXONE 1 GM in DEXTROSE 5%-WATER - 50 ML IVPB SCH (09:33)
[2017-10-16] MEDS: POLYETHYLENE GLYCOL 3350 119 GM BTL PO SCH ×2 (09:38→21:57)
[2017-10-16] MEDS: oxyCODONE HCL 5 MG TABLET PO PRN (21:57)
[2017-10-17] MEDS: METRONIDAZOLE 500 MG PREMIXED 500 MG/100 ML MG IVPB SCH ×2 (01:22→10:04)
[2017-10-17] MEDS: INSULIN SLIDING SCALE (NOVOLOG) 1 VIAL SQ SCH ×2 (06:05→13:47)
[2017-10-17] MEDS: DOCUSATE SODIUM 100 MG CAPSULE (FP) PO SCH ×2 (06:05→14:41)
[2017-10-17] MEDS: sitaGLIPtin PHOSPHATE 50 MG TABLET PO SCH (06:05)
[2017-10-17 08:28] LABS: BASOPHIL 0.8 % (0-2.0); EOSINOPHIL 7.3 % (0-4.5); MCHC 33.3 g/dl (32.0-35.9); MEAN CELL VOLUME 93.2 fl (80-96); NEUTROPHILS 62.8 % (42.8-82.8); RDW 13.9 % (11.9-15.9); WHITE BLOOD COUNT 5.7 K/mm3 (4.0-10.8)
[2017-10-17 08:30] LABS: MEAN PLT VOLUME 8.8 fl (7.5-11.1); PLATELET COUNT 187 K/MM3 (134-434)
[2017-10-17 08:40] LABS: ANION GAP 6 (8-16); CALCIUM 7.6 mg/dl (8.4-10.2); CO2 20 mmol/L (22-28); GLUCOSE,RANDOM 80 mg/dl (74-106); MAGNESIUM 1.9 mg/dL (1.8-2.4); PHOSPHOROUS 3.2 mg/dl (2.5-4.6)
--- NOTE | 2017-10-17 08:46 | DS ---
Physical Exam: SUBJECTIVE: Patient seen and examined, reports feeling much improved, denies any abdominal pain, tactile fever. OBJECTIVE:This is an 82 year old male with a history of IDDM, HTN, HLD, and CAD s/p MA and stents x 2. He reports that many years ago he had some difficulty urinating, was seen by a urologist, and was placed on Flomax; he denies any other urologic history or recent symptoms. He presents today complaining of chills last night, followed by suprapubic pain and inability to urinate this morning. On arrival to the ED, u/s showed retention of approximately 600mL urine ; Vásquez catheter was inserted with relief. ER course was also notable for: (1) + SIRS criteria: HR 106, WBC 19 (2) UA indicative of UTI wiht >100 WBCs (3) Started on Levaquin (PCN allergy) Vital Signs Period Temp Pulse Resp BP Sys/Cook Pulse Ox Last 24 Hr 97.7 F-98.1 F 60-73 19-19 111-134/61-69 94-96 PHYSICAL EXAM GENERAL: The patient is awake, alert, and fully oriented, in no acute distress. HEAD: Normal with no signs of trauma. EYES: PERRL, extraocular movements intact, sclera anicteric, conjunctiva clear. ENT: Ears normal, nares patent, oropharynx clear without exudates, moist mucous membranes. NECK: Trachea midline, full range of motion, supple. LUNGS: Breath sounds equal, clear to auscultation bilaterally, no wheezes, no crackles, no accessory muscle use. HEART: Regular rate and rhythm, S1, S2 without murmur, rub or gallop. ABDOMEN: Soft, obese, nontender, nondistended, normoactive bowel sounds, no guarding, no rebound, no hepatosplenomegaly, no masses. EXTREMITIES: 2+ pulses, warm, well-perfused, no edema. NEUROLOGICAL: Cranial nerves II through XII grossly intact. Normal speech, gait not observed. PSYCH: Normal mood, normal affect. SKIN: Warm, dry, normal turgor, no rashes or lesions noted. LABS Laboratory Results - last 24 hr 10/16/17 10/16/17 10/16/17 11:48 18:38 22:38 WBC RBC Hgb Hct MCV MCH MCHC RDW Plt Count MPV Neutrophils % Lymphocytes % Monocytes % Eosinophils % Basophils % POC Glucometer 97 134 126 10/17/17 10/17/17 05:57 07:30 WBC 5.7 RBC 4.21 Hgb 13.0 Hct 39.2 MCV 93.2 MCH 31.0 MCHC 33.3 RDW 13.9 Plt Count 187 MPV 8.8 Neutrophils % 62.8 Lymphocytes % 16.5 Monocytes % 12.6 H D Eosinophils % 7.3 H D Basophils % 0.8 POC Glucometer 93 Microbiology 10/13/17 10:40 Blood - Peripheral Venous Blood Culture - Preliminary NO GROWTH OBTAINED AFTER 96 HOURS, INCUBATION TO CONTINUE FOR 1 DAYS. 10/13/17 10:35 Blood - Peripheral Venous Blood Culture - Preliminary NO GROWTH OBTAINED AFTER 96 HOURS, INCUBATION TO CONTINUE FOR 1 DAYS. 10/13/17 09:20 Urine - Urine Clean Catch Urine Culture - Final Klebsiella Oxytoca IMAGING ct scan of abd/pelvis: acute sigmoid divertiuliits, 3.8cm infrarenal aortic aneursym chest xray: no acute pathology HOSPITAL COURSE: * 1. 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, case discused with Dr Hogan, vascular surgeon, pt will require strict follow up and serial abd ultrasound every 6 months, CAD, continued home dose plavix * pmh of DM, continued glargine, ISS and Diabetic diet * acute sigmoid diverticulitis, denies any abd pain, continued levaquin and flagy, patient will require outpatient follow up with GI, Dr Fernandez for colonscopy Date of Admission:10/13/17 Date of Discharge: 10/17/17 Minutes to complete discharge: 45 Discharge Summary Reason For Visit: urinary retention Current Active Problems Acute urinary retention (Acute) Penicillin allergy (Acute) Rigors (Acute) Sepsis (Acute) UTI (urinary tract infection) (Acute) Condition: Fair - Instructions Diet, Activity, Other Instructions: you were admitted to the hospital for diverticulitis and a urinary tract infection. continue low fiber diet continue ceftin and flagyl for the next 7 days an aortic aneurysm was noted on your ct scan of the abdomen, this will require strict follow up with the vascular surgeon within 3 weeks please follow up with Dr Fernandez, GI within 2 weeks please follow up with the urologist within 2 weeks if any new or persistent symptoms develop please return to the emergency department Referrals: Jimbo Meyers MD [Staff Physician] - Cruz Fernandez MD [Staff Physician] - 2 Weeks Leonardo Hogan MD [Staff Physician] - 3 Weeks Disposition: HOME - Home Medications Comprehensive Discharge Medication List: Ambulatory Orders Allopurinol [Zyloprim -] 100 mg PO BID 08/27/14 Amlodipine Besylate [Norvasc -] 10 mg PO DAILY 08/27/14 Chlorthalidone 25 mg PO DAILY 08/27/14 Clopidogrel Bisulfate [Clopidogrel] 75 mg PO Q2D 08/27/14 Linagliptin [Tradjenta] 5 mg PO DAILY 08/27/14 Metoprolol Tartrate [Lopressor -] 25 mg PO BID 08/27/14 Tamsulosin HCl [Flomax] 0.4 mg PO DAILY 08/27/14 Valsartan [Diovan] 320 mg PO DAILY 08/27/14 Insulin Glargine,Hum.rec.anlog [Touestephanieo Solostar] 35 unit SQ DAILY 10/13/17 Lorazepam 0.5 mg PO QID PRN 10/13/17 Prednisolone 1% Ophthalmic [Pred Forte 1% -] 5 ml OP QID 10/13/17 - Discharge Referral Referred to [facility] Med [facility].: No
--- NOTE | 2017-10-17 09:23 | PN ---
Progress Note (short form) - Note Progress Note: Patient seen and chart/labs reviewed with consult dictated. Patient with resolving sigmoid diverticulitis - on IV antibiotics. WBC improving and no fever/chills. Abdominal pain also decreased and prior urinary symptoms also improving. Tolerating soft diet. Would continue antibiotics per ID and advance gradually to low residue diet ( keep on low residue diet x 3 weeks) Will followup in office as outpatient; patient aware.
[2017-10-17] MEDS ORDERED: REFRIGERATED ANITBIOTICS ONE ×3 (10:00→14:19)
[2017-10-17] MEDS: VALSARTAN 160 MG TABLET (UD) PO SCH (10:04)
[2017-10-17] MEDS: ALLOPURINOL 100 MG TABLET (FP) PO SCH (10:05)
[2017-10-17] MEDS: POTASSIUM CHLORIDE TABS 20 MEQ TABLET.ER (FP) PO SCH (10:05)
[2017-10-17] MEDS: amLODIPine BESYLATE 10 MG TABLET (FP) PO SCH (10:05)
[2017-10-17] MEDS: METOPROLOL TARTRATE 25 MG TABLET (FP) PO SCH (10:05)
[2017-10-17] MEDS: TAMSULOSIN HCL 0.4 MG CAP.ER.24H (FP) PO SCH (10:05)
[2017-10-17] MEDS: CLOPIDOGREL BISULFATE 75 MG TABLET (FP) PO SCH (10:05)
[2017-10-17] MEDS: HEPARIN NA (PORCINE) 5,000 UNITS/ML 1ML VIAL SQ SCH (10:06)
[2017-10-17] MEDS: POLYETHYLENE GLYCOL 3350 119 GM BTL PO SCH (10:06)
[2017-10-17] MEDS: PATIENT'S OWN MEDICATION (NON-FORMULARY) (Insulin Glargine,Hum.Rec.Anlog [Toujeo Solostar] SQ SCH (10:06)
--- NOTE | 2017-10-17 10:07 | PN ---
Progress Note, Physician History of Present Illness: Awake, alert No complaints Denies abdominal pain No N/V/D Intermittant urinary retention No dysuria/hematuria No fever/ chills - Current Medication List Current Medications: Active Medications Acetaminophen (Tylenol -) 650 mg PO Q4H PRN PRN Reason: FEVER OR PAIN Last Admin: 10/15/17 11:37 Dose: 650 mg Allopurinol (Zyloprim -) 100 mg PO BID [facility] Last Admin: 10/16/17 21:46 Dose: 100 mg Amlodipine Besylate (Norvasc -) 10 mg PO DAILY [facility] Last Admin: 10/16/17 09:32 Dose: 10 mg Clopidogrel Bisulfate (Plavix -) 75 mg PO Q2D [facility] Last Admin: 10/15/17 10:22 Dose: 75 mg Docusate Sodium (Colace -) 100 mg PO TID [facility] Last Admin: 10/17/17 06:05 Dose: 100 mg Heparin Sodium (Porcine) (Heparin -) 5,000 unit SQ BID [facility] Last Admin: 10/16/17 21:45 Dose: 5,000 unit Ceftriaxone Sodium 1 gm/ (Dextrose) 50 mls @ 100 mls/hr IVPB DAILY [facility] Last Admin: 10/16/17 09:33 Dose: 100 mls/hr Metronidazole (Flagyl 500mg Premixed Ivpb -) 500 mg in 100 mls @ 100 mls/hr IVPB Q8H-IV [facility] Last Admin: 10/17/17 01:22 Dose: 100 mls/hr Insulin Aspart (Novolog Vial Sliding Scale -) 1 vial SQ ACHS [facility] PRN Reason: Protocol Last Admin: 10/17/17 06:05 Dose: Not Given Metoprolol Tartrate (Lopressor -) 25 mg PO BID [facility] Last Admin: 10/16/17 21:46 Dose: 25 mg Non-Formulary Medication (Insulin Glargine,Hum.Rec.Anlog [Mikel Gottlieb]) 35 unit SQ DAILY [facility] Last Admin: 10/16/17 09:32 Dose: 35 unit Ondansetron HCl (Zofran Injection) 4 mg IVPUSH Q6H PRN PRN Reason: NAUSEA Oxycodone HCl (Roxicodone -) 5 mg PO Q6H PRN PRN Reason: PAIN Last Admin: 10/16/17 21:57 Dose: 5 mg Polyethylene Glycol (Miralax (For Daily Use) -) 17 gm PO BID [facility] Last Admin: 10/16/17 21:57 Dose: 17 grams Potassium Chloride (K-Dur -) 20 meq PO DAILY [facility] Last Admin: 10/16/17 09:31 Dose: 20 meq Prednisolone Acetate (Pred Forte 1% -) 1 drop OS BID [facility] Last Admin: 10/16/17 21:46 Dose: 1 drop Sitagliptin Phosphate (Januvia -) 100 mg PO DAILY@0700 [facility] Last Admin: 10/17/17 06:05 Dose: 100 mg Tamsulosin HCl (Flomax -) 0.4 mg PO DAILY [facility] Last Admin: 10/16/17 09:31 Dose: 0.4 mg Valsartan (Diovan -) 320 mg PO DAILY [facility] Last Admin: 10/16/17 09:33 Dose: 320 mg - Objective Vital Signs: Vital Signs Temperature 97.7 F 10/17/17 06:00 Pulse Rate 60 10/17/17 06:00 Respiratory Rate 19 10/17/17 06:00 Blood Pressure 134/69 10/17/17 06:00 O2 Sat by Pulse Oximetry (%) 96 10/16/17 22:00 Constitutional: Yes: No Distress Eyes: Yes: Conjunctiva Clear, Other (L eye patch) Cardiovascular: Yes: Regular Rate and Rhythm, S1, S2 Respiratory: Yes: CTA Bilaterally Gastrointestinal: Yes: Normal Bowel Sounds, Soft, Abdomen, Obese. No: Tenderness Edema: No Labs: CBC, BMP 10/17/17 07:30 10/17/17 07:30 Assessment/Plan S/P Acute urinary retention UTI Klebsiella ? Sigmoid diverticulitis abdominal exam benign May substitute po antibiotic therapy ceftin 500mg po bid + flagyl 500mg po tid x 7d Outpatient GI/ follow up
[2017-10-17] MEDS ORDERED: PT OWN MED DRAWER 7, Y5N ONE (10:09)
[2017-10-17] MEDS: prednisoLONE ACETATE 1% OPHTH SUSP 5 ML BOTTLE OS SCH (10:10)
[2017-10-17] MEDS: CEFTRIAXONE 1 GM in DEXTROSE 5%-WATER - 50 ML IVPB SCH (10:10)
[2017-10-17 14:24] VITALS: BP 127/68; PULSE 65; TEMP 97.8
--- NOTE | 2017-10-18 09:24 | CONS ---
DATE OF CONSULTATION: 10/17/2017 REASON FOR CONSULTATION: Asked to evaluate this 82-year-old gentleman admitted with diverticulitis. HISTORY OF PRESENT ILLNESS: The patient is an 82-year-old gentleman with history of coronary artery disease as well as a history of known diverticulosis with bleeding in the past. He was admitted to the hospital on October 13 via the emergency room with difficulty urinating, chills, and shaking. In the emergency room, he was noted to have a leukocytosis with a white count of 19,000 and hematocrit of 43.5%. A CAT scan of the abdomen and pelvis was obtained, consistent with sigmoid diverticulitis. The patient was started on IV antibiotics with a diagnosis of acute diverticulitis and possible urinary infection/urosepsis. He has clinically improved with decreased abdominal complaints and reduction in his white count. Currently, he denies any significant abdominal pain and is tolerating a soft diet. He also states his urination is improved. PHYSICAL EXAMINATION: Vital Signs: Today, he is afebrile, temperature 97.7; 134/69; heart rate of 90s. Lungs: Clear. Cardiac: regular rate and rhythm. Abdomen: Soft, obese, nontender. No masses. LABORATORY DATA: His white count is 5.7, hematocrit of 39.2, with normal chemistries including a BUN of 15 and creatinine of 1.0. IMPRESSION/RECOMMENDATIONS: Patient with resolving sigmoid diverticulitis and possible urinary tract infection, clinically improved and being followed by Infectious Disease with regards to antibiotics. Would continue patient on either a soft diet or possibly advance to a low-residue diet which he should stay on for at least several weeks to ensure healing of the diverticulitis/inflamed area. Will follow up in the office. No GI intervention recommended at this time. Will follow as needed. DEVIKA PLATT M.D. OSCAR/[id number]
== END 2017-10-17 14:40 | disposition home or self-care (01) | DRG 872 ==
LOC: FER 08:40 → FM/S 13:02
PROVIDERS: ADMIT Hospitalist; ATTEND Nurse Practitioner Family
DX: A41.9 Sepsis, unspecified organism (principal); N39.0 Urinary tract infection, site not specified; K57.92 Diverticulitis of intestine, part unspecified, without perforation or abscess without bleeding; R33.9 Retention of urine, unspecified; E11.9 Type 2 diabetes mellitus without complications; I10 Essential (primary) hypertension; B96.1 Klebsiella pneumoniae [K. pneumoniae] as the cause of diseases classified elsewhere; I25.10 Atherosclerotic heart disease of native coronary artery without angina pectoris; Z98.61 Coronary angioplasty status; I25.2 Old myocardial infarction; E78.5 Hyperlipidemia, unspecified; Z88.0 Allergy status to penicillin
CPT/HCPCS: 36415; 71020-TC; 74176-TC; 80048; 80053; 81003; 81015; 83605; 83735; 84100; 85025; 87040; 87086; 87186; 93005; 99284-25; J1644

== ENCOUNTER 2019-10-17 11:09 | Emergency (ER) | payer OTHER ==
[2019-10-17 11:14] VITALS: TEMP 97.6; BMI 31.2
[2019-10-17] MEDS ORDERED: ACETAMINOPHEN 1000 MG/100 ML VIAL (NON FORMULARY) IVPB ONE (11:39)
[2019-10-17] MEDS ORDERED: ACETAMINOPHEN INJECTION 100 ML IVPB ONE (12:11)
[2019-10-17] MEDS ORDERED: DIPHTH,PERTUSS(ACELL),TET 0.5 ML DISP.SYRIN IM ONE ×2 (12:45→12:55)
[2019-10-17 12:46] LABS: INR 0.99 (0.82-1.09); PROTHROMBIN TIME (PATIENT) 11.1 SEC (10.2-13.0)
[2019-10-17 12:48] LABS: ALBUMIN 3.1 g/dl (3.4-5.0); BILIRUBIN,TOTAL 0.6 mg/dl (0.2-1); CALCIUM 8.6 mg/dl (8.5-10); CREATININE 1.1 mg/dl (0.55-1.3); POTASSIUM 4.5 mmol/L (3.5-5.1); TOT PROT 5.9 g/dl (6.4-8.2)
[2019-10-17 12:51] LABS: BASO % 0.4 % (0-2.0); EOS % 1.2 % (0-4.5); HEMATOCRIT 43.9 % (35.4-49); HEMOGLOBIN 15.3 GM/dl (11.7-16.9); LYMPH % 14.1 % (8-40); MCH 32.3 pg (25.7-33.7); MCHC 34.8 g/dl (32.0-35.9); MEAN CELL VOLUME 92.6 fl (80-96); MEAN PLT VOLUME 8.2 fl (7.5-11.1); MONO % 5.2 % (3.8-10.2); NEUT % 79.1 % (42.8-82.8); PLATELET COUNT 157 K/MM3 (134-434); RBC 4.74 M/mm3 (4.00-5.60); WHITE BLOOD COUNT 8.6 K/mm3 (4.0-10.8)
--- NOTE | 2019-10-17 13:15 | PDOC ---
History of Present Illness - General History Source: Patient Exam Limitations: No Limitations - History of Present Illness Initial Comments: 10/17/19 13:12 Stairs for 4-year-old male status post trip and fall down 5 stairs at approximately 2 AM. Patient states he heard a noise outside went outside to see what is happening subsequently tripped and fell he laid there for about half hour until somebody was able to help him up and back into the house he has been ambulating since his fall but is complaining of right anterior rib pain. He has multiple facial abrasions is complaining of facial pain he also is complaining of right knee pain right wrist and right hand pain. Patient states he does not remember when his last tetanus was states that he is uncertain if he had LOC patient does take Plavix denies any headache nausea vomiting since the incident lives at home with his <Laury Joyce - Last Filed: 10/17/19 13:12> <Magen Owusu - Last Filed: 10/17/19 14:50> - General Chief Complaint: Injury Stated Complaint: fall Time Seen by Provider: 10/17/19 11:26 Past History - Past Medical History Cardiac Disorders: Yes ([place], CAD with coronary stents.) COPD: No Diabetes: Yes GI Disorders: Yes (DIVERTICULOSIS) HTN: Yes Hypercholesterolemia: Yes - Surgical History Cardiac Surgery: Yes (2 STENTS) - Immunization History Immunization Up to Date: Yes - Psycho Social/Smoking Cessation Hx Smoking History: Former smoker Have you smoked in the past 12 months: No Number of Cigarettes Smoked Daily: 0 Information on smoking cessation initiated: No Hx Alcohol Use: No Drug/Substance Use Hx: No Substance Use Type: None Hx Substance Use Treatment: No <Laury Joyce - Last Filed: 10/17/19 13:12> <Magen Owusu - Last Filed: 10/17/19 14:50> - Past Medical History Allergies/Adverse Reactions: Allergies Allergy/AdvReac Type Severity Reaction Status Date / Time Penicillins Allergy Unknown Verified 10/17/19 11:10 Home Medications: Ambulatory Orders Allopurinol [Zyloprim -] 100 mg PO BID 08/27/14 Amlodipine Besylate [Norvasc -] 10 mg PO DAILY 08/27/14 Clopidogrel Bisulfate [Clopidogrel] 75 mg PO Q2D 08/27/14 Linagliptin [Tradjenta] 5 mg PO DAILY 08/27/14 Metoprolol Tartrate [Lopressor -] 25 mg PO BID 08/27/14 Tamsulosin HCl [Flomax -] 0.4 mg PO DAILY 08/27/14 Valsartan [Diovan] 320 mg PO DAILY 08/27/14 Insulin Glargine,Hum.rec.anlog [Mikel Gottlieb] 32 unit SQ DAILY 10/13/17 *Physical Exam - Vital Signs Last Vital Signs Temp Pulse Resp BP Pulse Ox 97.6 F 87 17 149/92 98 10/17/19 11:10 10/17/19 11:10 10/17/19 11:10 10/17/19 11:10 10/17/19 11:10 - Physical Exam 10/17/19 13:13 Awake alert no acute distress patient has multiple facial abrasions 1 over the right forehead. The right upper lip is abraded. The jaw shows no malocclusion. No bony facial abnormalities or step-offs. No midline cervical spinal tenderness. He does have right anterior chest wall tenderness in the inframammary line near the sternum. No sternal tenderness lungs are clear bilaterally heart is regular without murmurs rubs or gallops abdomen is soft there is mild right lower rib right upper abdomen tenderness. No rebound no guarding pelvis is stable patient has full range of motion of bilateral hips. The right knee is with ecchymosis and a small effusion he does have full range of motion. Bilateral ankles are nontender the right hand is with multiple superficial abrasions and skin tears. He has full range of motion at the wrist but does have tenderness there the left wrist is mildly tender but does have full range of motion multiple ecchymosis noted to the right hand GCS of 15 moving all 4 extremities walks with a limp <Laury Joyce - Last Filed: 10/17/19 13:12> - Vital Signs Last Vital Signs Temp Pulse Resp BP Pulse Ox 97.6 F 87 17 149/92 98 10/17/19 11:10 10/17/19 11:10 10/17/19 11:10 10/17/19 11:10 10/17/19 11:10 <Magen Owusu - Last Filed: 10/17/19 14:50> ED Treatment Course - LABORATORY CBC & Chemistry Diagram: 10/17/19 12:15 10/17/19 12:15 - ADDITIONAL ORDERS Additional order review: Laboratory Results 10/17/19 10/17/19 10/17/19 12:15 12:15 12:15 PT with INR 11.1 INR 0.99 PTT (Actin FS) 28.3 Sodium 138 Potassium 4.5 Chloride 107 Carbon Dioxide 22 Anion Gap 9 BUN 25.0 H Creatinine 1.1 Est GFR (CKD-EPI)AfAm 70.08 Est GFR (CKD-EPI)NonAf 60.46 Random Glucose 130 H Calcium 8.6 Total Bilirubin 0.6 AST 32 ALT 30 Alkaline Phosphatase 77 Total Protein 5.9 L Albumin 3.1 L 10/17/19 12:15 RBC 4.74 MCV 92.6 MCHC 34.8 RDW 14.0 MPV 8.2 Neutrophils % 79.1 D Lymphocytes % 14.1 Monocytes % 5.2 Eosinophils % 1.2 D Basophils % 0.4 - RADIOLOGY Radiology Studies Ordered: Category Date Time Status ABDOMEN & PELVIS CT WITH CONTR [CT] Stat CT Scan 10/17/19 11:[address] W/O CONTR [CT] Stat CT Scan 10/17/19 11:[address] W/O CONTRAST [CT] Stat CT Scan 10/17/19 11:[address] WITHOUT CONTRAST [CT] Stat CT Scan 10/17/19 11:15 Ordered CHEST - PA [RAD] Stat Radiology 10/17/19 11:46 Completed HAND- RIGHT [RAD] Stat Radiology 10/17/19 11:46 Completed KNEE 3 POS-RIGHT [RAD] Stat Radiology 10/17/19 11:31 Completed PELVIS [RAD] Stat Radiology 10/17/19 11:31 Completed WRIST- RIGHT [RAD] Stat Radiology 10/17/19 11:32 Completed WRIST-LEFT [RAD] Stat Radiology 10/17/19 11:32 Completed - Medications Given in the ED: ED Medications Discontinued Medications Generic Name Dose Route Start Last Admin Trade Name Freq PRN Reason Stop Dose Admin Acetaminophen 1,000 mg 10/17/19 11:39 10/17/19 12:26 Ofirmev Injection - IVPB 10/17/19 11:40 1,000 mg ONCE ONE Administration Diphtheria/Tetanus/Acell Pertussis 0.5 ml 10/17/19 12:45 10/17/19 13:02 Boostrix - IM 10/17/19 12:46 0.5 ml .ONCE ONE Administration <Maria Del CarmenLaury - Last Filed: 10/17/19 13:12> - LABORATORY CBC & Chemistry Diagram: 10/17/19 12:15 10/17/19 12:15 - ADDITIONAL ORDERS Additional order review: Laboratory Results 10/17/19 10/17/19 10/17/19 12:15 12:15 12:15 PT with INR 11.1 INR 0.99 PTT (Actin FS) 28.3 Sodium 138 Potassium 4.5 Chloride 107 Carbon Dioxide 22 Anion Gap 9 BUN 25.0 H Creatinine 1.1 Est GFR (CKD-EPI)AfAm 70.08 Est GFR (CKD-EPI)NonAf 60.46 Random Glucose 130 H Calcium 8.6 Total Bilirubin 0.6 AST 32 ALT 30 Alkaline Phosphatase 77 Total Protein 5.9 L Albumin 3.1 L 10/17/19 12:15 RBC 4.74 MCV 92.6 MCHC 34.8 RDW 14.0 MPV 8.2 Neutrophils % 79.1 D Lymphocytes % 14.1 Monocytes % 5.2 Eosinophils % 1.2 D Basophils % 0.4 - Medications Given in the ED: ED Medications Discontinued Medications Generic Name Dose Route Start Last Admin Trade Name Freq PRN Reason Stop Dose Admin Acetaminophen 1,000 mg 10/17/19 11:39 10/17/19 12:26 Ofirmev Injection - IVPB 10/17/19 11:40 1,000 mg ONCE ONE Administration Diphtheria/Tetanus/Acell Pertussis 0.5 ml 10/17/19 12:45 10/17/19 13:02 Boostrix - IM 10/17/19 12:46 0.5 ml .ONCE ONE Administration <Magen Owusu - Last Filed: 10/17/19 14:50> Medical Decision Making - Medical Decision Making 10/17/19 13:14 84-year-old male on Plavix status post trip and fall at 2 AM. Multiple abrasions over the hand and face. Plan bacitracin to the wounds multiple skin tears will treat conservatively with bandage and bacitracin. Will order CT head C-spine CT chest abdomen pelvis was ordered to rule out bony fractures as well as solid organ injury. X-rays of the chest show no obvious fracture normal lungs. X-rays of bilateral wrist and right knee as well as pelvis are negative for any fracture. CT chest abdomen pelvis head and C-spine are pending signed out to the oncoming physician awaiting CT results. <Laury Joyce - Last Filed: 10/17/19 13:12> - Medical Decision Making 10/17/19 14:48 lac repaired with #3 6-[address] scan/ Xr results reviewed Shared decision making with son and patient re:dc versus admission. It is reasonable to send him home as long as they "keep a close eye on him" <Magen Owusu - Last Filed: 10/17/19 14:50> Discharge <Laury Joyce - Last Filed: 10/17/19 13:12> - Discharge Information Problems reviewed: Yes <Magen Owusu - Last Filed: 10/17/19 14:50> - Discharge Information Clinical Impression/Diagnosis: Multiple contusions, Laceration Head trauma Qualifiers: Encounter type: initial encounter Qualified Code(s): S09.90XA - Unspecified injury of head, initial encounter Condition: Fair - Patient Discharge Instructions Patient Printed Discharge Instructions: DI for Laceration Repair, DI for Closed Head Injury, Stretching Exercises Additional Instructions: Stitches out in 1 week
[2019-10-17 15:12] VITALS: BP 155/90; PULSE 78
== END 2019-10-17 15:48 | disposition home or self-care (01) ==
LOC: FER 11:09
PROC: 3E0234Z Introduction of Serum, Toxoid and Vaccine into Muscle, Percutaneous Approach (ICD-10-PCS; principal; 2019-10-17)
DX: S09.90XA Unspecified injury of head, initial encounter (principal); S00.83XA Contusion of other part of head, initial encounter; S00.81XA Abrasion of other part of head, initial encounter; S60.511A Abrasion of right hand, initial encounter; Z88.0 Allergy status to penicillin; Z95.5 Presence of coronary angioplasty implant and graft; I10 Essential (primary) hypertension; E78.00 Pure hypercholesterolemia, unspecified; E11.9 Type 2 diabetes mellitus without complications; K92.9 Disease of digestive system, unspecified; I25.2 Old myocardial infarction; W18.39XA Other fall on same level, initial encounter; Y93.89 Activity, other specified; Y92.009 Unspecified place in unspecified non-institutional (private) residence as the place of occurrence of the external cause
CPT/HCPCS: 36415; 70450-TC; 70486-TC; 71045-TC-FY; 72125-TC; 72170-TC-FY; 73110-TC-LT-FY; 73110-TC-RT-FY; 73130-TC-RT-FY; 73562-TC-RT-FY; 74177-TC; 80053; 85025; 85610; 85730; 90715; 99285-25; J0131

== ENCOUNTER 2019-10-25 09:02 | Emergency (ER) | payer OTHER ==
--- NOTE | 2019-10-25 09:05 | PDOC ---
Suture Removal/Wound Check HPI - History of Present Illness Chief Complaint: Suture/Staple Removal(Here) Stated Complaint: SUTURE REMOVAl Time Seen by Provider: 10/25/19 09:04 History Source: Yes: Patient, Family Exam Limitations: Yes: No Limitations Treated at: [facility] ED Date of Last ED visit: 10/17/19 - Previous ED Treatment Type of procedure performed on last visit: Yes: Laceration Repair Tetanus Immunization: Yes: Given at last ED visit - Onset of Previous Treatment Date of Occurence: 10/17/19 Time of Occurence: 02:00 Comment:: 10/25/19 09:09 84yo male with finger lac repaired a week ago after a fall down the stairs. Tetanus updated at the last visit. Mild redness to the wound, small amout of serous drainage. No swelling. No f/c. Abrasions to the R hand that are healing with scabs in place. Sutures in place over 4th digit knuckle. Pt states redness and wound is improving. Pt denies cough. No cp/sob. States ribs feel tender ( but has not taken any meds) when he takes a deep breath. No palpitations. No abd pain. No n/v/d. No dysuria. No other complaints. 10/25/19 09:24 PMHx: dm, htn Past History - Past Medical History Allergies/Adverse Reactions: Allergies Allergy/AdvReac Type Severity Reaction Status Date / Time Penicillins Allergy Unknown Verified 10/25/19 09:03 Home Medications: Ambulatory Orders Allopurinol [Zyloprim -] 100 mg PO BID 08/27/14 Amlodipine Besylate [Norvasc -] 10 mg PO DAILY 08/27/14 Clopidogrel Bisulfate [Clopidogrel] 75 mg PO Q2D 08/27/14 Linagliptin [Tradjenta] 5 mg PO DAILY 08/27/14 Metoprolol Tartrate [Lopressor -] 25 mg PO BID 08/27/14 Tamsulosin HCl [Flomax -] 0.4 mg PO DAILY 08/27/14 Valsartan [Diovan] 320 mg PO DAILY 08/27/14 Insulin Glargine,Hum.rec.anlog [Toujeo Solostar] 32 unit SQ DAILY 10/13/17 Clindamycin [Cleocin -] 450 mg PO Q8H #63 capsule 10/25/19 Cardiac Disorders: Yes ([place], CAD with coronary stents.) COPD: No Diabetes: Yes GI Disorders: Yes (DIVERTICULOSIS) HTN: Yes Hypercholesterolemia: Yes - Surgical History Cardiac Surgery: Yes (2 STENTS) - Immunization History Immunization Up to Date: Yes - Psycho Social/Smoking Cessation Hx Smoking History: Former smoker Have you smoked in the past 12 months: No Number of Cigarettes Smoked Daily: 0 Hx Alcohol Use: No Drug/Substance Use Hx: No Substance Use Type: None Hx Substance Use Treatment: No Suture Removal/Wound Check PE - Physical Exam Laceration/Wound Check Symptoms: reports: None Current Severity Level: None Maximum Severity Level: None Pain Localization: None Location of Laceration/Wound: right: Finger (4th digit) Pain Radiation: None *Review of Systems - Review of Systems Able to Perform ROS?: Yes Constitutional: No: Chills, Fever Respiratory: No: Cough, Shortness of Breath Cardiac (ROS): No: Chest Pain, Palpitations ABD/GI: No: Diarrhea, Nausea, Vomiting, Abdominal cramping : No: Burning Musculoskeletal: No: Back Pain, Neck Pain All Other Systems: Reviewed and Negative *Physical Exam - Vital Signs 10/25/19 09:29 Selected Entries 10/25/19 09:03 Temperature 97.9 F Pulse Rate 59 L Respiratory 19 Rate Blood Pressure 145/80 Blood Pressure 101 Mean O2 Sat by Pulse 97 Oximetry (%) Weight 97.522 kg - Physical Exam General Appearance: Yes: Nourished, Appropriately Dressed. No: Apparent Distress HEENT: positive: EOMI, Other (right eye injected, no drainage, has been like that since the fall) Neck: positive: Supple. negative: Tender midline Respiratory/Chest: positive: Lungs Clear, Normal Breath Sounds. negative: Chest Tender, Respiratory Distress Cardiovascular: positive: Regular Rhythm, Regular Rate, S1, S2. negative: Edema Gastrointestinal/Abdominal: positive: Soft. negative: Guarding, Rebound, Tenderness Musculoskeletal: positive: Normal Inspection. negative: CVA Tenderness, Vertebral Tenderness Extremity: positive: Normal Capillary Refill, Other (R hand dorsal side- abrasions to mcp that have scabs, no drainage, no erythema, 4th digit with lac with [address], mild surrounding erythema that the patient states improving, no fluctuance, trace serous drainage, no lymphangitic spread, no induration, no fluctuance, no ttp) Integumentary: positive: Warm Neurologic: positive: Fully Oriented, Normal Mood/Affect, Motor Strength 5/5, Other (ambulates with a cane) Medical Decision Making - Medical Decision Making 10/25/19 09:31 a/p: 84yo male with a fall a week ago with R hand lac with sutures -pt here for suture removal -3 sutures removed -sore from the fall, but not taking meds at home and states improving. 10/25/19 09:33 sutures removed pt tolerated the procedure well will dc with oral abx stable for dc to home Discharge - Discharge Information Problems reviewed: Yes Clinical Impression/Diagnosis: Visit for suture removal Condition: Stable Disposition: HOME - Admission No - Additional Discharge Information Prescriptions: Clindamycin [Cleocin -] 450 mg PO Q8H #63 capsule - Follow up/Referral Referrals: PMD, [Other] - Patient Discharge Instructions Patient Printed Discharge Instructions: DI for Suture Removal Additional Instructions: Please take all antibiotics as prescribed. Please keep your appointment with your PMD as scheduled for 11/11. Please return to the ED with any further concerns or complaints. If the redness of the Right hand worsens or you have increased pain please return to the ED immediately. - Post Discharge Activity
[2019-10-25 09:06] VITALS: BP 145/80; PULSE 59; TEMP 97.9; BMI 30.8
== END 2019-10-25 09:43 | disposition home or self-care (01) ==
LOC: FER 09:02
DX: Z48.02 Encounter for removal of sutures (principal)
CPT/HCPCS: 99281-25

== ENCOUNTER 2020-05-23 15:25 | Inpatient (IN) | payer OTHER ==
[2020-05-23] MEDS ORDERED: ACETAMINOPHEN 1000 MG/100 ML VIAL (NON FORMULARY) IVPB ONE (15:42)
[2020-05-23] MEDS ORDERED: SODIUM CHLORIDE 0.9% 1000 ML INFUS.BAG IV ONE (16:14)
[2020-05-23 16:27] LABS: EOS % 0.4 % (0-4.5); HEMATOCRIT 43.6 % (35.4-49); LYMPH % 9.3 % (8-40); MCH 30.9 pg (25.7-33.7); MCHC 34.4 g/dl (32.0-35.9); MEAN PLT VOLUME 7.6 fl (7.5-11.1); MONO % 5.8 % (3.8-10.2); NEUT % 81.5 % (42.8-82.8); PLATELET COUNT 198 K/MM3 (134-434); RBC 4.84 M/mm3 (4.00-5.60); RDW 14.3 % (11.9-15.9); WHITE BLOOD COUNT 12.9 K/mm3 (4.0-10.8)
[2020-05-23 16:44] LABS: ACTIVATED PTT 26.6 SECONDS (25.2-36.5)
[2020-05-23 16:46] LABS: BILIRUBIN,TOTAL 0.8 mg/dl (0.2-1); CALCIUM 8.3 mg/dl (8.5-10); POTASSIUM 3.7 mmol/L (3.5-5.1); TOT PROT 5.9 g/dl (6.4-8.2)
[2020-05-23 16:48] LABS: INR 1.12 (0.82-1.09); PROTHROMBIN TIME (PATIENT) 12.5 SEC (10.2-13.0)
[2020-05-23 16:48] LABS: EPITHELIAL CELLS FEW /hpf
[2020-05-23] MEDS ORDERED: MEROPENEM 1 GM in DEXTROSE 5%-WATER 100 ML IVPB ONE (16:57)
--- NOTE | 2020-05-23 18:36 | PDOC ---
Documentation entered by Cherelle Wellington SCRIBE, acting as scribe for Edison Lovett MD. Edison Lovett MD: This documentation has been prepared by the debbieibeAmish Maria, SCRIBE, under my direction and personally reviewed by me in its entirety. I confirm that the documentation accurately reflects all work, treatment, procedures, and medical decision making performed by me. History of Present Illness - General Chief Complaint: Urinary Problem Stated Complaint: UNABLE TO URINATE History Source: Patient Exam Limitations: No Limitations - History of Present Illness Initial Comments: 05/23/20 16:05 The patient is a 85 year old male with a significant past medical history of insulin dependent diabetes, hypertension, hyperlipidemia, diverticulitis and coronary artery disease s/p [place] and stents x 2 who presents to the emergency department with difficulty urinating since yesterday. Patient was admitted on 10/13/17 for similar symptoms. Patient notes associated weakness and lower back pain. Patient denies any cough or rhinorrhea. He denies any recent nausea, vomiting, diarrhea or constipation. He denies any recent chest pain or shortness of breath. He denies numbness or tingling. Past History - Medical History Allergies/Adverse Reactions: Allergies Allergy/AdvReac Type Severity Reaction Status Date / Time Penicillins Allergy Unknown Verified 05/23/20 16:27 Home Medications: Ambulatory Orders Allopurinol [Zyloprim -] 100 mg PO BID 08/27/14 Amlodipine Besylate [Norvasc -] 10 mg PO DAILY 08/27/14 Clopidogrel Bisulfate [Clopidogrel] 75 mg PO DAILY 08/27/14 Metoprolol Tartrate [Lopressor -] 25 mg PO BID 08/27/14 Tamsulosin HCl [Flomax -] 0.4 mg PO DAILY 08/27/14 Valsartan [Diovan] 320 mg PO DAILY 08/27/14 Insulin Glargine,Hum.rec.anlog [Toujeo Solostar] 0 unit SQ DAILY 10/13/17 Lorazepam [Ativan] 0.5 mg PO Q8H PRN MDD 3 05/23/20 Cardiac Disorders: Yes ([place], CAD with coronary stents.) COPD: No Diabetes: Yes GI Disorders: Yes (DIVERTICULOSIS) HTN: Yes Hypercholesterolemia: Yes - Surgical History Cardiac Surgery: Yes (2 STENTS) - Immunization History Immunization Up to Date: Yes - Psycho-Social/Smoking History Smoking History: Former smoker Have you smoked in the past 12 months: No Number of Cigarettes Smoked Daily: 0 Review of Systems - Review of Systems Able to Perform ROS?: Yes Comments:: 05/23/20 16:06 A complete review of 10 out of 10 review of systems is taken and is negative apart from what is previously mentioned below and in the HPI. *Physical Exam - Physical Exam 05/23/20 16:06 Vitals: Triage Vital signs reviewed General Appearance: well nourished well developed, Chest Wall: Nontender Cardiac: Regular rate and rhythm, no murmurs, no rubs, no gallops, Lungs: Clear to auscultation bilateral, good air movement bilaterally, Abdomen: Soft, nondistended, normal bowel sounds, nontender to palpation Rectal: Exam deferred Extremities:+ 1+ pitting edema in the right lower extremity. Full range of motion to all extremities, no cyanosis, clubbing. Skin: Warm and dry, no rashes or lesions, no petechiae ED Treatment Course - LABORATORY CBC & Chemistry Diagram: 05/23/20 16:24 05/23/20 15:32 Medical Decision Making - Medical Decision Making 05/23/20 18:35 85 years old with multiple comorbidities presents to the ED with urinary retention difficulty urinating fever lethargy Work-up in the ED notable for leukocytosis, urinary tract infection and fever of 101.9 Given penicillin allergy patient treated with meropenem empirically Will obtain chest CT abdomen CT to ensure no other pathology and admit for follow-up of cultures fever work-up antibiotics and further management. EKG performed at 1545 demonstrates normal sinus rhythm no ST elevations no T wave inversions Interpreted by me. Discharge - Discharge Information Problems reviewed: Yes Clinical Impression/Diagnosis: UTI (urinary tract infection) Qualifiers: Urinary tract infection type: site unspecified Hematuria presence: with hematuria Qualified Code(s): N39.0 - Urinary tract infection, site not specified; R31.9 - Hematuria, unspecified Condition: Stable - Follow up/Referral - Patient Discharge Instructions - Post Discharge Activity
--- NOTE | 2020-05-23 19:45 | PDOC ---
*Physical Exam - Vital Signs Last Vital Signs Temp Pulse Resp BP Pulse Ox 98.5 F 76 18 134/80 96 05/23/20 18:09 05/23/20 18:09 05/23/20 15:27 05/23/20 18:20 05/23/20 18:09 ED Treatment Course - LABORATORY CBC & Chemistry Diagram: 05/23/20 16:24 05/23/20 15:32 - ADDITIONAL ORDERS Additional order review: Laboratory Results 05/23/20 05/23/20 05/23/20 16:34 16:26 16:26 PT with INR 12.5 INR 1.12 PTT (Actin FS) 26.6 Sodium Potassium Chloride Carbon Dioxide Anion Gap BUN Creatinine Est GFR (CKD-EPI)AfAm Est GFR (CKD-EPI)NonAf Random Glucose Lactic Acid 0.9 Calcium Total Bilirubin AST ALT Alkaline Phosphatase Total Protein Albumin Urine Color Yellow Urine Appearance Sl cloudy Urine pH 6.0 Urine Protein 2+ H Urine Glucose (UA) Negative Urine Ketones Negative Urine Blood 2+ H Urine Nitrite Negative Urine Bilirubin Negative Urine Urobilinogen 0.2 Ur Leukocyte Esterase Negative Urine RBC 10-20 Urine WBC 5-10 Ur Transition Epith Cell Few Urine Bacteria Few 05/23/20 15:32 PT with INR INR PTT (Actin FS) Sodium 135 L Potassium 3.7 Chloride 103 Carbon Dioxide 21 Anion Gap 11 BUN 15.0 Creatinine 1.0 Est GFR (CKD-EPI)AfAm 78.08 Est GFR (CKD-EPI)NonAf 67.37 Random Glucose 101 Lactic Acid Calcium 8.3 L Total Bilirubin 0.8 AST 20 ALT 16 Alkaline Phosphatase 84 Total Protein 5.9 L Albumin 3.0 L Urine Color Urine Appearance Urine pH Urine Protein Urine Glucose (UA) Urine Ketones Urine Blood Urine Nitrite Urine Bilirubin Urine Urobilinogen Ur Leukocyte Esterase Urine RBC Urine WBC Ur Transition Epith Cell Urine Bacteria 05/23/20 16:24 RBC 4.84 MCV 90.0 MCHC 34.4 RDW 14.3 MPV 7.6 Neutrophils % 81.5 Lymphocytes % 9.3 D Monocytes % 5.8 Eosinophils % 0.4 Basophils % 3.0 H D - Medications Given in the ED: ED Medications Discontinued Medications Generic Name Dose Route Start Last Admin Trade Name Freq PRN Reason Stop Dose Admin Acetaminophen 1,000 mg 05/23/20 15:42 05/23/20 15:50 Ofirmev Injection - IVPB 05/23/20 15:43 1,000 mg ONCE ONE Administration Meropenem 1 gm/ Dextrose 100 mls @ 200 mls/hr 05/23/20 16:57 05/23/20 17:24 IVPB 05/23/20 17:26 200 mls/hr ONCE ONE Administration Sodium Chloride 1,000 ml 05/23/20 16:14 05/23/20 16:25 Normal Saline - IV 05/23/20 16:15 1,000 ml ONCE ONE Administration Medical Decision Making - Medical Decision Making 05/23/20 20:21 Patient Name: ELISSA CACERES THIS IS A PRELIMINARY REPORT FROM [facility] DATE OF SERVICE: 2020-05-23 19:06:24 IMAGES: [id number] EXAM: HEAD CT WITHOUT CONTRAST HISTORY: Altered mental status. Procedure: Contiguous axial tomographic sections were obtained from the base of the skull to the vertex without the use of intravenous contrast. Sagittal and coronal reformatted images are provided. COMPARISON: None. Preliminary findings/impression: 1. No evidence of acute intracranial hemorrhage on this study. 2. Mild diffuse cerebral atrophy, likely age related. 3. Mild hypodense white matter foci, suggestive of small vessel ischemic disease. 4. Atherosclerotic calcifications. 5. Nasal septal deviation. 05/23/20 20:43 Patient Name: ELISSA CACERES THIS IS A PRELIMINARY REPORT FROM [facility] DATE OF SERVICE: 2020-05-23 19:09:32 IMAGES: [id number] EXAM: CHEST/ABDOMEN/PELVIS CT WITH CONTRAST HISTORY: Fever. Procedure: Contiguous axial tomographic sections were obtained from the thoracic inlet to the bilateral ischial tuberosities after the use of only intravenous contrast. Sagittal and coronal reformatted images are provided. COMPARISON: None. Preliminary findings/impression: 1. Mild air space densities suggestive of atelectasis and/or fibrosis. Given the patient's history, early pneumonia cannot be entirely excluded, and short-term follow-up chest r adiographs and/or CT are recommended if the patient remains symptomatic. 2. Tubular density within the tracheal lumen and lumen of the left mainstem bronchus, with one possible etiology of mucous strand. A follow-up CT may be helpful to evaluate for resolution. 3. 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 A follow-up CT with intravenous contrast is recommended to confirm stability. 4. Atrophic pancreatic parenchyma. 5. Hypodense bilateral renal lesions consistent with cysts, with bilateral adrenal nodules suggestive of adenomas. A follow-up CT is recommended to confirm stability. 6. Air within the bladder lumen, possibly secondary to recent intervention. Please correlate clinically. 7. Colonic diverticula. 8. Kyphoscoliosis of the thoracolumbar spine, with L2/L3 retrolisthesis. 9. Diffuse degenerative changes with osteopenia. Discharge - Discharge Information Problems reviewed: Yes Clinical Impression/Diagnosis: COPD bronchitis, Pneumonia UTI (urinary tract infection) Qualifiers: Urinary tract infection type: site unspecified Hematuria presence: with hematuria Qualified Code(s): N39.0 - Urinary tract infection, site not specified Condition: Stable - Follow up/Referral - Patient Discharge Instructions - Post Discharge Activity
--- NOTE | 2020-05-23 21:01 | HP ---
Admitting History and Physical - Primary Care Physician PCP: Jax Calles (Not on staff) - Admission Chief Complaint: Dysuria, Fever, Lethargy History of Present Illness: This is a 85 y/o male with a significant past medical history of HTN, HLD, CAD s/p NM, stents x2 DM, Diverticulitis. Who presents to the ED with urinary retention, subjective fevers 102.0 at home, and lethargy. Patient reports having generalized weakness and back pain. Patient reports similar symptoms when admitted for UTI in October 2017. Patient denies cough, rhinorrhea, dizziness, HOOPER, SOB, CP, palpitations, AP, N/V/D constipation, melena, hematochezia. Patient denies recent sick contacts or travel. History Source: Patient Limitations to Obtaining History: No Limitations - Past Medical History Cardiovascular: Yes: CAD, HTN, Hyperlipdemia, NM, Other (s/p stenting X2) Gastrointestinal: Yes: Diverticulitis, Diverticulosis Renal/: Yes: Other (prostatitis) Musculoskeletal: Yes: Other (3 left hip replacements) Endocrine: Yes: Diabetes Mellitus - Past Surgical History Past Surgical History: Yes: Joint Replacement, Stent (x2) - Smoking History Smoking history: Former smoker Have you smoked in the past 12 months: No Aproximately how many cigarettes per day: 0 - Alcohol/Substance Use Hx Alcohol Use: No History of Substance Use: reports: None - Social History Usual Living Arrangement: Yes: With Spouse Do you think of yourself as: Straight/Heterosexual ADL: Independent Occupation: Retired History of Recent Travel: No Home Medications - Allergies Allergies/Adverse Reactions: Allergies Allergy/AdvReac Type Severity Reaction Status Date / Time Penicillins Allergy Unknown Verified 05/23/20 16:27 - Home Medications Home Medications: Ambulatory Orders Allopurinol [Zyloprim -] 100 mg PO BID 08/27/14 Amlodipine Besylate [Norvasc -] 10 mg PO DAILY 08/27/14 Clopidogrel Bisulfate [Clopidogrel] 75 mg PO DAILY 08/27/14 Metoprolol Tartrate [Lopressor -] 25 mg PO BID 08/27/14 Tamsulosin HCl [Flomax -] 0.4 mg PO DAILY 08/27/14 Valsartan [Diovan] 320 mg PO DAILY 08/27/14 Insulin Glargine,Hum.rec.anlog [Tocinda Solpatricia] 0 unit SQ DAILY 10/13/17 Lorazepam [Ativan] 0.5 mg PO Q8H PRN MDD 3 05/23/20 Family Medical History Family History: Unremarkable Review of Systems - Review of Systems Constitutional: reports: Chills, Fever, Weakness, Other ([place]) Eyes: reports: No Symptoms HENT: reports: No Symptoms Neck: reports: No Symptoms Cardiovascular: reports: Edema Respiratory: reports: No Symptoms Gastrointestinal: reports: No Symptoms Genitourinary: reports: Dysuria Breasts: reports: No Symptoms Reported Musculoskeletal: reports: Back Pain Integumentary: reports: No Symptoms Neurological: reports: Weakness Endocrine: reports: No Symptoms Hematology/Lymphatic: reports: No Symptoms Psychiatric: reports: No Symptoms Pain Intensity: 4 Physical Examination Vital Signs: Vital Signs Temperature 98.5 F 05/23/20 18:09 Pulse Rate 81 05/23/20 20:20 Respiratory Rate 18 05/23/20 20:20 Blood Pressure 170/99 05/23/20 20:20 O2 Sat by Pulse Oximetry (%) 95 05/23/20 20:20 Constitutional: Yes: No Distress, Calm, Other ([place]) Eyes: Yes: WNL, Conjunctiva Clear, EOM Intact, PERRL HENT: Yes: WNL, Atraumatic, Normocephalic Neck: Yes: WNL, Supple, Trachea Midline Cardiovascular: Yes: Regular Rate and Rhythm, S1 Respiratory: Yes: Diminished Gastrointestinal: Yes: Normal Bowel Sounds, Soft ...Rectal Exam: Yes: Deferred Renal/: Yes: Rangel Present (red colored urine in tubing) Breast(s): Yes: WNL Musculoskeletal: Yes: Back Pain Extremities: Yes: WNL Edema: Yes Edema: RLE: 1+ Peripheral Pulses WNL: Yes Neurological: Yes: WNL, Alert, Oriented, Cran Nerves II-XII Intact ...Motor Strength: WNL Psychiatric: Yes: WNL, Alert, Oriented Labs: CBC, BMP 05/23/20 16:24 05/23/20 15:32 Imaging - Results Chest X-ray: Image Reviewed Cat Scan: Report Reviewed, Image Reviewed EKG: Image Reviewed Problem List - Problems (1) Sepsis Assessment/Plan: Likely due to UTI vs CAP Sepsis Criteria MET Blood Cultures, Urine Culture- pending WBC 12.9 T Max 101.9 Chest Xray image reviewed- ?LLL infiltrate, increased markings CT Chest, AP image, report reviewed- early pneumonia cannot be ruled out Meropenem, Levafloxacin given in ED, will continue for pseudomonal coverage Appreciate ID consult Monitor CBC, CMP NS bolus given in ED Maintain MAP >65 Monitor vitals Code(s): A41.9 - SEPSIS, UNSPECIFIED ORGANISM (2) Pneumonia Assessment/Plan: see above [id number] 1, low risk Urine Legionella Code(s): J18.9 - PNEUMONIA, UNSPECIFIED ORGANISM (3) UTI (urinary tract infection) Assessment/Plan: UA- reviewed Urine Culture-pending hx Klebsiella Oxytoca Continue Meropenem Appreciate ID consult Monitor CBC, CMP Monitor Vitals Tylenol prn Code(s): N39.0 - URINARY TRACT INFECTION, SITE NOT SPECIFIED Qualifiers: Urinary tract infection type: site unspecified Hematuria presence: with hematuria Qualified Code(s): N39.0 - Urinary tract infection, site not specified; R31.9 - Hematuria, unspecified (4) Acute urinary retention Assessment/Plan: Likely due to UTI vs BPH vs Malignancy Chest, AP CT reviewed Rangel Care Strict INOs Consider Urology consult Consider Renal/Bladder US Monitor CBC, CMP Code(s): R33.8 - OTHER RETENTION OF URINE (5) Hematuria Assessment/Plan: Likely secondary to UTI Consider Urology consult if no improvement Code(s): R31.9 - HEMATURIA, UNSPECIFIED (6) CAD (coronary artery disease) Assessment/Plan: stable s/p Stents Continue home meds with parameters EKG-reviewed Code(s): I25.10 - ATHSCL HEART DISEASE OF [place] CORONARY ARTERY W/O ANG PCTRS (7) Diabetes Assessment/Plan: stable, well controlled BGMs ISS Monitor renal function Code(s): E11.9 - TYPE 2 DIABETES MELLITUS WITHOUT COMPLICATIONS (8) Hypocalcemia Assessment/Plan: Corrected Calcium 9.1 Monitor CMP Code(s): E83.51 - HYPOCALCEMIA Assessment/Plan This is a 85 y/o male with a significant past medical history of HTN, HLD, CAD s/p NM, stents x2 DM, Diverticulitis. Admitted for Sepsis, UTI, Pneumonia, lethargy for further evaluation of their emergent condition. Plan: See Problem List FEN PO fluids as tolerated Replete lytes prn Low Na, Diabetic Diet DVT ppx OOB SCDs Hold AC secondary to Hematuria Code Status: Full Code Dispo: Requires Inpatient Care Visit type - Emergency Visit Emergency Visit: Yes ED Registration Date: 05/23/20 Care time: The patient presented to the Emergency Department on the above date and was hospitalized for further evaluation of their emergent condition. - New Patient This patient is new to me today: Yes Date on this admission: 05/23/20 - Critical Care Critical Care patient: No
[2020-05-23 22:35] VITALS: BMI 29.8
[2020-05-23] MEDS: METOPROLOL TARTRATE 25 MG TABLET (FP) PO SCH (23:01)
[2020-05-24] MEDS ORDERED: MEROPENEM 1 GM in DEXTROSE 5%-WATER 100 ML IVPB SCH (02:00)
[2020-05-24] MEDS ORDERED: DEXTROSE 5%-WATER 100 ML IVPB ONE (03:12)
[2020-05-24] MEDS ORDERED: MEROPENEM 1 GM VIAL (RESTRICTED TO ID) IVPB ONE (03:13)
--- NOTE | 2020-05-24 07:06 | PN ---
Physical Exam: SUBJECTIVE: Patient seen and examined oob to chair. Vásquez is uncomfortable. OBJECTIVE: Vital Signs Period Temp Pulse Resp BP Sys/Cook Pulse Ox Last 24 Hr 97.9 F-101.9 F 67-111 16-18 105-179/64-107 95-99 GENERAL: The patient is awake, alert, and fully oriented, mildly anxious LUNGS: Breath sounds equal, clear to auscultation bilaterally, no wheezes, no crackles, no accessory muscle use. HEART: Regular rate and rhythm, S1, S2 ABDOMEN: Soft, nontender, nondistended, normoactive bowel sounds, no guarding, no rebound, no hepatosplenomegaly, no masses; no CVA tenderness; vásquez in place, pink-tinged urine EXTREMITIES: 2+ pulses, warm, well-perfused, no edema. NEUROLOGICAL: Cranial nerves II through XII grossly intact. Normal speech Laboratory Results - last 24 hr 05/23/20 05/23/20 05/23/20 15:32 16:24 16:26 WBC 12.9 H RBC 4.84 Hgb 15.0 Hct 43.6 MCV 90.0 MCH 30.9 MCHC 34.4 RDW 14.3 Plt Count 198 D MPV 7.6 Absolute Neuts (auto) 10.5 Neutrophils % 81.5 Lymphocytes % 9.3 D Monocytes % 5.8 Eosinophils % 0.4 Basophils % 3.0 H D PT with INR INR PTT (Actin FS) Sodium 135 L Potassium 3.7 Chloride 103 Carbon Dioxide 21 Anion Gap 11 BUN 15.0 Creatinine 1.0 Est GFR (CKD-EPI)AfAm 78.08 Est GFR (CKD-EPI)NonAf 67.37 POC Glucometer Random Glucose 101 Lactic Acid Calcium 8.3 L Total Bilirubin 0.8 AST 20 ALT 16 Alkaline Phosphatase 84 Total Protein 5.9 L Albumin 3.0 L Urine Color Yellow Urine Appearance Sl cloudy Urine pH 6.0 Urine Protein 2+ H Urine Glucose (UA) Negative Urine Ketones Negative Urine Blood 2+ H Urine Nitrite Negative Urine Bilirubin Negative Urine Urobilinogen 0.2 Ur Leukocyte Esterase Negative Urine RBC 10-20 Urine WBC 5-10 Ur Transition Epith Cell Few Urine Bacteria Few 05/23/20 05/23/20 05/24/20 16:26 16:34 06:11 WBC RBC Hgb Hct MCV MCH MCHC RDW Plt Count MPV Absolute Neuts (auto) Neutrophils % Lymphocytes % Monocytes % Eosinophils % Basophils % PT with INR 12.5 INR 1.12 PTT (Actin FS) 26.6 Sodium Potassium Chloride Carbon Dioxide Anion Gap BUN Creatinine Est GFR (CKD-EPI)AfAm Est GFR (CKD-EPI)NonAf POC Glucometer 120 Random Glucose Lactic Acid 0.9 Calcium Total Bilirubin AST ALT Alkaline Phosphatase Total Protein Albumin Urine Color Urine Appearance Urine pH Urine Protein Urine Glucose (UA) Urine Ketones Urine Blood Urine Nitrite Urine Bilirubin Urine Urobilinogen Ur Leukocyte Esterase Urine RBC Urine WBC Ur Transition Epith Cell Urine Bacteria Current Medications Generic Name Dose Route Start Last Admin Trade Name Freq PRN Reason Stop Dose Admin Acetaminophen 650 mg 05/24/20 15:08 Tylenol - PO Q6H PRN PAIN LEVEL 1-5 Amlodipine Besylate 10 mg 05/24/20 10:00 05/24/20 09:12 Norvasc - PO 10 mg DAILY SONJA Administration Clopidogrel Bisulfate 75 mg 05/24/20 10:00 05/24/20 09:12 Plavix - PO 75 mg DAILY SONJA Administration Ceftriaxone Sodium 2 gm in 50 mls @ 100 mls/hr 05/24/20 10:00 05/24/20 09:13 Ceftriaxone 2 Gm-D5w Bag IVPB 100 mls/hr DAILY SONJA Administration Protocol Metoprolol Tartrate 25 mg 05/23/20 23:45 05/24/20 09:13 Lopressor - PO 25 mg BID SONJA Administration Tamsulosin HCl 0.4 mg 05/24/20 08:30 05/24/20 09:12 Flomax - PO 0.4 mg DAILY@0830 SONJA Administration Valsartan 320 mg 05/24/20 10:00 05/24/20 09:13 Diovan - PO 320 mg DAILY SONJA Administration ASSESSMENT/PLAN: 85 year-old male with a PMH significant for HTN, HLD, CAD s/p GA s/p stents x 2, Type II IDDM, diverticulitis, diverticular bleeds x 2. Admitted for sepsis likely seconday to UTI. Sepsis likely secondary to UTI --Tm 101.9, WBC 13.1k, pyuria, lactic acid wnl --seen and evaluated by ID, has tolerated ceftriaxone in past (day #1) --cultures pending Acute urinary retention Elevated PSA Hematuria --takes flomax on a daily basis but has not had problems with urinary retention since 2017 --recently told by PCP his PSA was elevated, has initial appointment with urologist next month --urology consult placed Coronary artery disease s/p stents x 2 --continue metoprolol, Plavix Type II IDDM --Novolog sliding scale Hypertension --BP is stable, continue amlodipine, valsartan Hyperlipidemia --not on statin therapy Diverticulitis h/o diverticular bleeds (2004, 2013) --stable --daily h/h Hypokalemia --repleted Anxiety --hold lorazepam PRN, high-risk med for patient over 65 COVID --swab 05/23 pending FEN Fluids: PO intake adequate Electrolytes: replete as indicated Nutrition: diabetic/sodium DVT prophylaxis: hold chemical prophylaxis due to hematuria; SCDs, oob, ambulation Physical therapy Dispo: continues to require inpatient care. Full code. Visit type - Emergency Visit Emergency Visit: Yes ED Registration Date: 05/23/20 Care time: The patient presented to the Emergency Department on the above date and was hospitalized for further evaluation of their emergent condition. - New Patient This patient is new to me today: Yes Date on this admission: 05/24/20 - Critical Care Critical Care patient: No - Medication Review Med list reviewed for High Risk Meds patients 65 and older: Yes
[2020-05-24 08:07] LABS: BASO % 0.5 % (0-2.0); EOS % 0.3 % (0-4.5); HEMATOCRIT 36.8 % (35.4-49); HEMOGLOBIN 12.6 GM/dl (11.7-16.9); LYMPH % 10.4 % (8-40); MCH 30.5 pg (25.7-33.7); MCHC 34.2 g/dl (32.0-35.9); MEAN PLT VOLUME 7.8 fl (7.5-11.1); MONO % 4.7 % (3.8-10.2); NEUT % 84.1 % (42.8-82.8); PLATELET COUNT 185 K/MM3 (134-434); RBC 4.13 M/mm3 (4.00-5.60); RDW 13.9 % (11.9-15.9); WHITE BLOOD COUNT 13.1 K/mm3 (4.0-10.8)
[2020-05-24 08:08] LABS: ALBUMIN 2.3 g/dl (3.4-5.0); BILIRUBIN,TOTAL 0.7 mg/dl (0.2-1); CALCIUM 7.6 mg/dl (8.5-10); POTASSIUM 3.4 mmol/L (3.5-5.1); TOT PROT 4.8 g/dl (6.4-8.2)
--- NOTE | 2020-05-24 08:44 | PN ---
Progress Note (short form) - Note Progress Note: ID CONSULT DICTATED UTI R/O SEPSIS SECONDARY TO UTI ACUTE URINARY RETENTION PCN ALLERGY ( HAS TOLERATED CEPHALOSPORINS IN PAST) AWAIT CULTURES EMPIRIC CEFTRIAXONE
[2020-05-24] MEDS ORDERED: POTASSIUM CHLORIDE TABS 20 MEQ TABLET.ER (FP) PO ONE (08:59)
[2020-05-24] MEDS: amLODIPine BESYLATE 10 MG TABLET (FP) PO SCH (09:12)
[2020-05-24] MEDS: CLOPIDOGREL BISULFATE 75 MG TABLET (FP) PO SCH (09:12)
[2020-05-24] MEDS: TAMSULOSIN HCL 0.4 MG CAP PO SCH (09:12)
[2020-05-24] MEDS: METOPROLOL TARTRATE 25 MG TABLET (FP) PO SCH ×2 (09:13→22:01)
[2020-05-24] MEDS: CEFTRIAXONE 2 GM-D5W BAG 2 GM/50 ML BAG IVPB SCH (09:13)
--- NOTE | 2020-05-24 09:29 | EKG ---
Test Reason : Blood Pressure : / mmHG Vent. Rate : 096 BPM Atrial Rate : 096 BPM P-R Int : 198 ms QRS Dur : 098 ms QT Int : 364 ms P-R-T Axes : 071 -45 024 degrees QTc Int : 459 ms SINUS RHYTHM WITH PREMATURE ATRIAL COMPLEXES LEFT AXIS DEVIATION ABNORMAL ECG WHEN COMPARED WITH ECG OF 13-OCT-2017 10:22, CRITERIA FOR SEPTAL INFARCT ARE NO LONGER PRESENT Confirmed by Ade Knox ([id number]) on 05/24/2020 9:28:59 AM Referred By: JAMAAL CHAVEZ Confirmed By:Ade Knox
[2020-05-24] MEDS ORDERED: VALSARTAN 40 MG TABLET (FP) PO SCH (10:00)
[2020-05-24] MEDS ORDERED: ACETAMINOPHEN 325 MG TABLET (FP) PO PRN (15:08)
--- NOTE | 2020-05-24 17:08 | CONS ---
DATE OF CONSULTATION: DATE OF DICTATION: 05/24/2020 INFECTIOUS DISEASE CONSULTATION HISTORY OF PRESENT ILLNESS: The patient is an 85-year-old male who was evaluated for urosepsis. He was admitted to the hospital from home on May 23, 2020, with acute urinary retention. He reports that on Sunday, May 22, 2020, he had difficulty voiding. He complains of generalized weakness and worsening low back pain. He was noted by family members to have rigors. He was taken to the emergency room where he was taken to the emergency room where he was noted to be febrile with an elevated white blood cell count. Urinalysis showed pyuria and microscopic hematuria. He was empirically treated with meropenem, as he has a PENICILLIN allergy. A Rangel catheter was inserted. At the present time, he has no complaints of pain. He denied any recent dysuria. He had previously had episodes of acute urinary retention. He was hospitalized a couple years ago for urinary retention and urinary tract infection. There was no history of resistant urinary tract pathogens, no recent antibiotic therapy, no recent hospitalizations. PAST MEDICAL HISTORY: Positive for insulin dependent diabetes mellitus, hypertension, hyperlipidemia, diverticulosis, coronary artery disease, myocardial infarction, coronary artery stent. ALLERGIES: PENICILLIN. Patient reports rash. He has tolerated cephalosporins in the past. MEDICATION: Include: 1. Levaquin. 2. Meropenem. 3. Flomax. 4. Plavix. 5. Norvasc. 6. Lopressor. 7. Diovan. SOCIAL HISTORY: He resides in the community at home with his significant other. He is a former smoker. SYSTEMS REVIEW: Neurologic: No loss of consciousness, seizure activity, focal weakness. Cardiac: Negative for chest pain or palpitations. Respiratory: Negative for cough or sputum production. Gastrointestinal: Negative vomiting or diarrhea. Genitourinary: As per HPI. LABORATORY DATA: White count 13.1, 84 neutrophils, 10 lymphocytes, 4 monocytes. Hematocrit 36.8, platelet count 185, creatinine 1.0. Urinalysis 5-10 white cells, 10-20 red cells. PHYSICAL EXAMINATION: General: On physical examination, he is supine in bed, in no acute distress. Not acutely toxic appearing. Vital signs: Temperature 99.1, T-max 101.9, blood pressure 129/64, pulse 67 regular, respirations 18 per minute. HEENT: Sclerae anicteric. Cardiovascular: Heart sounds S1, S2. Lungs: Clear bilaterally. No rhonchi, rales, or wheezing. Abdomen: Soft. No suprapubic tenderness. Extremities: Negative for edema. IMPRESSION: 1. Urinary tract infection, rule out sepsis secondary to urinary tract infection. 2. Acute urinary retention. 3. PENICILLIN allergy. 4. Diabetes mellitus. 5. Leukocytosis. Await cultures. Will empirically treat with ceftriaxone 2 g IV piggyback daily. Patient has tolerated cephalosporins in the past. He has no history of multidrug resistant organisms. Previous urine isolate from 2017 was susceptible to ceftriaxone. Will follow. Thank you for the kind referral. DEL PAYAN M.D. RADHA/[id number]
[2020-05-24] MEDS: INSULIN (NOVOLOG) ASPART 100 UNITS/ML 10ML VIAL SQ SCH ×2 (18:59→22:01)
[2020-05-24] MEDS: ALLOPURINOL 100 MG TABLET (FP) PO SCH (22:01)
[2020-05-25] MEDS: INSULIN (NOVOLOG) ASPART 100 UNITS/ML 10ML VIAL SQ SCH ×4 (07:49→21:08)
--- NOTE | 2020-05-25 08:19 | PN ---
Progress Note, Physician History of Present Illness: AWAKE, ALERT C/O PENILE PAIN SECONDARY TO CATHETER NO SUPRAPUBIC OR FLANK PAIN NO FEVER/ CHILLS TOLERATING CEFTRIAXONE TEMPS DOWN WBC 13K BC PRELIM (-) URINE C/S LF - Current Medication List Current Medications: Active Medications Acetaminophen (Tylenol -) 650 mg PO Q6H PRN PRN Reason: PAIN LEVEL 1-5 Allopurinol (Zyloprim -) 100 mg PO BID [facility] Last Admin: 05/24/20 22:01 Dose: 100 mg Documented by: Amlodipine Besylate (Norvasc -) 10 mg PO DAILY [facility] Last Admin: 05/24/20 09:12 Dose: 10 mg Documented by: Clopidogrel Bisulfate (Plavix -) 75 mg PO DAILY [facility] Last Admin: 05/24/20 09:12 Dose: 75 mg Documented by: Ceftriaxone Sodium (Ceftriaxone 2 Gm-D5w Bag) 2 gm in 50 mls @ 100 mls/hr IVPB DAILY [facility]; Protocol Last Admin: 05/24/20 09:13 Dose: 100 mls/hr Documented by: Insulin Aspart (Novolog Vial) 0 units SQ ACHS [facility]; Protocol Last Admin: 05/25/20 07:49 Dose: Not Given Documented by: Metoprolol Tartrate (Lopressor -) 25 mg PO BID [facility] Last Admin: 05/24/20 22:01 Dose: 25 mg Documented by: Tamsulosin HCl (Flomax -) 0.4 mg PO DAILY@0830 [facility] Last Admin: 05/24/20 09:12 Dose: 0.4 mg Documented by: Valsartan (Diovan -) 320 mg PO DAILY [facility] - Objective Vital Signs: Vital Signs Temperature 97.6 F 05/25/20 06:38 Pulse Rate 63 05/25/20 06:38 Respiratory Rate 20 05/25/20 06:38 Blood Pressure 136/71 05/25/20 06:38 O2 Sat by Pulse Oximetry (%) 95 05/25/20 06:38 Constitutional: Yes: No Distress Eyes: Yes: Conjunctiva Clear Cardiovascular: Yes: Regular Rate and Rhythm, S1, S2 Respiratory: Yes: CTA Bilaterally Gastrointestinal: Yes: Normal Bowel Sounds, Soft, Abdomen, Obese. No: Tenderness Edema: No Labs: CBC, BMP 05/24/20 06:55 05/24/20 06:55 INR, PTT INR 1.12 (0.82-1.09) 05/23/20 16:34 Assessment/Plan UTI R/O SEPSIS SECONDARY TO UTI ACUTE URINARY RETENTION FEVER/ LEUKOCYTOSIS PCN ALLERGY AWAIT C/S CONTINUE CEFTRIAXONE UROLOGY EVALUATION
--- NOTE | 2020-05-25 09:26 | CONS ---
DATE OF CONSULTATION: DATE OF DICTATION: 05/24/2020 HISTORY OF PRESENT ILLNESS: Patient is an 85-year-old male admitted via the emergency room on May 23, 2020. Patient is admitted with acute urinary retention. He reports that on Sunday he had difficulty voiding. Also complained of generalized weakness as well as low back pain. He also had some rigors. He was taken to the emergency room, where he felt warm and had an elevated white count. His urinalysis revealed microscopic hematuria as well as pyuria. He was treated with meropenem. He is allergic to penicillin. A Rangel catheter was inserted. He denies any recent episodes of UTI. He has had previous urinary retention 2 years earlier. PAST SURGICAL HISTORY: He denies any surgical procedures. PAST MEDICAL HISTORY: He is a diabetic, hypertensive, dyslipidemic, had coronary artery disease, has had a stent placed, also has sigmoid diverticulosis. MEDICATIONS: On admission, he was on Flomax and Levaquin, Plavix, Lopressor, and Diovan. SOCIAL HISTORY: Patient is a former smoker. PHYSICAL EXAMINATION: Physical exam revealed a soft abdomen. Rangel is patent. Genitalia are atraumatic. His prostate is 3+, firm, and nontender. LABORATORY: Urine is clear. His white count is 13,000. His creatinine is 1. IMAGING: The patient had a CT scan of his abdomen and pelvis, and this revealed moderate chronic interstitial lung disease, a 4.2-cm distal abdominal aortic aneurysm, bilateral renal cysts. There was left nephrolithiasis with no evidence of hydronephrosis. There was also extensive sigmoid diverticulosis without evidence of diverticulitis. IMPRESSION: Impression at present is acute urinary retention secondary to benign prostatic hypertrophy. Will recommend cystoscopy, possible transurethral resection of the prostate when patient is medically stable. Will follow patient in office and perform stone workup. Will follow with you. Giulia [id number]
[2020-05-25] MEDS: VALSARTAN 160 MG TABLET (UD) PO SCH (09:35)
[2020-05-25] MEDS: TAMSULOSIN HCL 0.4 MG CAP PO SCH (09:35)
[2020-05-25] MEDS: CEFTRIAXONE 2 GM-D5W BAG 2 GM/50 ML BAG IVPB SCH (09:35)
[2020-05-25] MEDS: CLOPIDOGREL BISULFATE 75 MG TABLET (FP) PO SCH (09:35)
[2020-05-25] MEDS: amLODIPine BESYLATE 10 MG TABLET (FP) PO SCH (09:36)
[2020-05-25] MEDS: METOPROLOL TARTRATE 25 MG TABLET (FP) PO SCH ×2 (09:36→21:11)
[2020-05-25] MEDS: ALLOPURINOL 100 MG TABLET (FP) PO SCH ×2 (09:36→21:11)
--- NOTE | 2020-05-25 15:15 | PN ---
Physical Exam: SUBJECTIVE: Patient seen and examined oob to chair. Feeling much better since vásquez removed this morning, is voiding freely. OBJECTIVE: Vital Signs Period Temp Pulse Resp BP Sys/Cook Pulse Ox Last 24 Hr 97.6 F-98.9 F 63-84 17-20 136-156/71-88 94-95 GENERAL: The patient is awake, alert, and fully oriented, mildly anxious LUNGS: Breath sounds equal, clear to auscultation bilaterally, no wheezes, no crackles, no accessory muscle use. HEART: Regular rate and rhythm, S1, S2 ABDOMEN: Soft, nontender, nondistended, no CVA tenderness EXTREMITIES: 2+ pulses, warm, well-perfused, no edema. NEUROLOGICAL: Cranial nerves II through XII grossly intact. Normal speech Laboratory Results - last 24 hr 05/24/20 05/24/20 05/25/20 18:14 21:58 05:41 POC Glucometer 196 138 135 05/25/20 11:24 POC Glucometer 130 Active Medications Generic Name Dose Route Start Last Admin Trade Name Jeremyq PRN Reason Stop Dose Admin Acetaminophen 650 mg 05/24/20 15:08 05/25/20 10:20 Tylenol - PO 650 mg Q6H PRN Administration PAIN LEVEL 1-5 Allopurinol 100 mg 05/24/20 22:00 05/25/20 09:36 Zyloprim - PO 100 mg BID SONJA Administration Amlodipine Besylate 10 mg 05/24/20 10:00 05/25/20 09:36 Norvasc - PO 10 mg DAILY SONJA Administration Clopidogrel Bisulfate 75 mg 05/24/20 10:00 05/25/20 09:35 Plavix - PO 75 mg DAILY SONJA Administration Ceftriaxone Sodium 2 gm in 50 mls @ 100 mls/hr 05/24/20 10:00 05/25/20 09:35 Ceftriaxone 2 Gm-D5w Bag IVPB 100 mls/hr DAILY SONJA Administration Protocol Insulin Aspart 0 units 05/24/20 16:30 05/25/20 11:24 Novolog Vial SQ Not Given ACHS SONJA Protocol Metoprolol Tartrate 25 mg 05/24/20 22:00 05/25/20 09:36 Lopressor - PO 25 mg BID SONJA Administration Tamsulosin HCl 0.4 mg 05/24/20 08:30 05/25/20 09:35 Flomax - PO 0.4 mg DAILY@0830 SONJA Administration Valsartan 320 mg 05/25/20 10:00 05/25/20 09:35 Diovan - PO 320 mg DAILY SONJA Administration ASSESSMENT/PLAN: 85 year-old male with a PMH significant for HTN, HLD, CAD s/p DE s/p stents x 2, Type II IDDM, diverticulitis, diverticular bleeds x 2. Admitted for sepsis likely seconday to UTI. Sepsis likely secondary to LFGNB UTI --afebrile >24 hours, mild leukocytosis --continue ceftriaxone (day #2) Acute urinary retention Elevated PSA Hematuria --vásquez removed today by urology, voiding freely --outpatient followup Coronary artery disease s/p stents x 2 --continue metoprolol, Plavix Type II IDDM --Novolog sliding scale Hypertension --BP is stable, continue amlodipine, valsartan Hyperlipidemia --not on statin therapy Diverticulitis h/o diverticular bleeds (2004, 2013) --stable --daily h/h Hypokalemia --repleted Anxiety --hold lorazepam PRN, high-risk med for patient over 65 COVID --swab 05/23 negative FEN Fluids: PO intake adequate Electrolytes: replete as indicated Nutrition: diabetic/sodium DVT prophylaxis: hold chemical prophylaxis due to hematuria; SCDs, oob, ambulation Physical therapy Dispo: continues to require inpatient care. Full code. Visit type - Emergency Visit Emergency Visit: Yes ED Registration Date: 05/23/20 Care time: The patient presented to the Emergency Department on the above date and was hospitalized for further evaluation of their emergent condition. - New Patient This patient is new to me today: No - Critical Care Critical Care patient: No - Medication Review Med list reviewed for High Risk Meds patients 65 and older: Yes
[2020-05-26] MEDS: INSULIN (NOVOLOG) ASPART 100 UNITS/ML 10ML VIAL SQ SCH ×2 (06:07→12:05)
--- NOTE | 2020-05-26 08:11 | PN ---
Progress Note, Physician History of Present Illness: AWAKE, ALERT IN BED SEARS CATHETER REMOVED, PT VOIDING WITHOUT DIFFICULTY NO C/O DYSURIA NO SUPRAPUBIC OR FLANK PAIN NO FEVER/ CHILLS TOLERATING CEFTRIAXONE TEMPS REMAIN DOWN BC PRELIM (-) URINE C/S KLEBSIELLA - Current Medication List Current Medications: Active Medications Acetaminophen (Tylenol -) 650 mg PO Q6H PRN PRN Reason: PAIN LEVEL 1-5 Last Admin: 05/25/20 10:20 Dose: 650 mg Documented by: Allopurinol (Zyloprim -) 100 mg PO BID [facility] Last Admin: 05/25/20 21:11 Dose: 100 mg Documented by: Amlodipine Besylate (Norvasc -) 10 mg PO DAILY [facility] Last Admin: 05/25/20 09:36 Dose: 10 mg Documented by: Clopidogrel Bisulfate (Plavix -) 75 mg PO DAILY [facility] Last Admin: 05/25/20 09:35 Dose: 75 mg Documented by: Ceftriaxone Sodium (Ceftriaxone 2 Gm-D5w Bag) 2 gm in 50 mls @ 100 mls/hr IVPB DAILY [facility]; Protocol Last Admin: 05/25/20 09:35 Dose: 100 mls/hr Documented by: Insulin Aspart (Novolog Vial) 0 units SQ ACHS [facility]; Protocol Last Admin: 05/26/20 06:07 Dose: Not Given Documented by: Metoprolol Tartrate (Lopressor -) 25 mg PO BID [facility] Last Admin: 05/25/20 21:11 Dose: 25 mg Documented by: Tamsulosin HCl (Flomax -) 0.4 mg PO DAILY@0830 [facility] Last Admin: 05/25/20 09:35 Dose: 0.4 mg Documented by: Valsartan (Diovan -) 320 mg PO DAILY [facility] Last Admin: 05/25/20 09:35 Dose: 320 mg Documented by: - Objective Vital Signs: Vital Signs Temperature 97.7 F 05/26/20 06:00 Pulse Rate 63 05/26/20 06:00 Respiratory Rate 18 05/26/20 06:00 Blood Pressure 130/61 05/26/20 06:00 O2 Sat by Pulse Oximetry (%) 96 05/26/20 06:00 Constitutional: Yes: No Distress Cardiovascular: Yes: Regular Rate and Rhythm, S1, S2 Respiratory: Yes: CTA Bilaterally Gastrointestinal: Yes: Normal Bowel Sounds, Soft. No: Tenderness Edema: No Labs: CBC, BMP 05/24/20 06:55 05/24/20 06:55 INR, PTT INR 1.12 (0.82-1.09) 05/23/20 16:34 Assessment/Plan UTI FEVER- RESOLVED S/P ACUTE URINARY RETENTION PCN ALLERGY TOLERATING CEPHALOSPORIN SUBSTITUTE PO CEFTIN 500MG BID X7D OUTPATIENT FOLLOW UP
[2020-05-26 08:31] LABS: BASO % 0.8 % (0-2.0); EOS % 2.4 % (0-4.5); HEMOGLOBIN 12.9 GM/dl (11.7-16.9); LYMPH % 15.4 % (8-40); MCH 30.3 pg (25.7-33.7); MCHC 33.8 g/dl (32.0-35.9); MEAN CELL VOLUME 89.5 fl (80-96); MEAN PLT VOLUME 7.9 fl (7.5-11.1); MONO % 5.9 % (3.8-10.2); NEUT % 75.5 % (42.8-82.8); PLATELET COUNT 181 K/MM3 (134-434); RBC 4.25 M/mm3 (4.00-5.60); RDW 13.9 % (11.9-15.9); WHITE BLOOD COUNT 7.2 K/mm3 (4.0-10.8)
[2020-05-26 08:36] LABS: ALBUMIN 2.3 g/dl (3.4-5.0); BILIRUBIN,TOTAL 0.3 mg/dl (0.2-1); CREATININE 1.1 mg/dl (0.55-1.3); MAGNESIUM 1.8 mg/dL (1.8-2.4); POTASSIUM 3.8 mmol/L (3.5-5.1); TOT PROT 5.1 g/dl (6.4-8.2)
--- NOTE | 2020-05-26 09:22 | DS ---
Physical Exam: SUBJECTIVE: Patient seen and examined OBJECTIVE: Vital Signs Period Temp Pulse Resp BP Sys/Cook Pulse Ox Last 24 Hr 97.7 F-98.9 F 63-84 17-18 130-156/61-88 94-96 PHYSICAL EXAM GENERAL: The patient is awake, alert, and fully oriented, mildly anxious LUNGS: Breath sounds equal, clear to auscultation bilaterally, no wheezes, no crackles, no accessory muscle use. HEART: Regular rate and rhythm, S1, S2 ABDOMEN: Soft, nontender, nondistended, no CVA tenderness EXTREMITIES: 2+ pulses, warm, well-perfused, no edema. NEUROLOGICAL: Cranial nerves II through XII grossly intact. Normal speech LABS Laboratory Results - last 24 hr 05/23/20 05/25/20 05/25/20 16:24 11:24 15:28 WBC RBC Hgb Hct MCV MCH MCHC RDW Plt Count MPV Absolute Neuts (auto) Neutrophils % Lymphocytes % Monocytes % Eosinophils % Basophils % Sodium Potassium Chloride Carbon Dioxide Anion Gap BUN Creatinine Est GFR (CKD-EPI)AfAm Est GFR (CKD-EPI)NonAf POC Glucometer 130 144 Random Glucose Calcium Magnesium Total Bilirubin AST ALT Alkaline Phosphatase Total Protein Albumin COVID-19 ([facility]) Not detected 05/25/20 05/26/20 05/26/20 20:48 06:06 07:09 WBC 7.2 RBC 4.25 Hgb 12.9 Hct 38.0 MCV 89.5 MCH 30.3 MCHC 33.8 RDW 13.9 Plt Count 181 MPV 7.9 Absolute Neuts (auto) 5.3 Neutrophils % 75.5 Lymphocytes % 15.4 D Monocytes % 5.9 Eosinophils % 2.4 D Basophils % 0.8 Sodium Potassium Chloride Carbon Dioxide Anion Gap BUN Creatinine Est GFR (CKD-EPI)AfAm Est GFR (CKD-EPI)NonAf POC Glucometer 137 117 Random Glucose Calcium Magnesium Total Bilirubin AST ALT Alkaline Phosphatase Total Protein Albumin COVID-19 ([facility]) 05/26/20 07:09 WBC RBC Hgb Hct MCV MCH MCHC RDW Plt Count MPV Absolute Neuts (auto) Neutrophils % Lymphocytes % Monocytes % Eosinophils % Basophils % Sodium 140 Potassium 3.8 Chloride 110 H Carbon Dioxide 22 Anion Gap 8 BUN 17.0 Creatinine 1.1 Est GFR (CKD-EPI)AfAm 69.59 Est GFR (CKD-EPI)NonAf 60.04 POC Glucometer Random Glucose 117 H Calcium 8.0 L Magnesium 1.8 Total Bilirubin 0.3 AST 16 ALT 16 Alkaline Phosphatase 65 Total Protein 5.1 L Albumin 2.3 L COVID-19 ([facility]) HOSPITAL COURSE: Date of Admission:05/23/20 Date of Discharge: 05/26/20 Pre hospital course This is a 85 y/o male with a significant past medical history of HTN, HLD, CAD s/p SC, stents x2 DM, Diverticulitis. Who presents to the ED with urinary retention, subjective fevers 102.0 at home, and lethargy. Patient reports having generalized weakness and back pain. Patient reports similar symptoms when admitted for UTI in October 2017. Patient denies cough, rhinorrhea, dizziness, HOOPER, SOB, CP, palpitations, AP, N/V/D constipation, melena, hematochezia. Patient denies recent sick contacts or travel. 85 year-old male with a PMH significant for HTN, HLD, CAD s/p SC s/p stents x 2, Type II IDDM, diverticulitis, diverticular bleeds x 2. Admitted for sepsis likely seconday to UTI. ER course (1) T 101.9, p111, WBC 12.9k, pyuria (2) vásquez placed for urinary retention Subsequent hospital course Sepsis likely secondary to LFGNB UTI --Tm 101.9, WBC 13.1k, pyuria, lactic acid wnl on admission --afebrile >48 hours at time of discharge and leukocytosis resolved --treated with ceftriaxone x 3 days, discharged on ceftrin for an additional 7 days of treatment Acute urinary retention Elevated PSA Hematuria --vásquez removed 05/25 by urology, voiding freely --outpatient followup Coronary artery disease s/p stents x 2 --continued metoprolol, Plavix Type II IDDM --Novolog sliding scale Hypertension --BP stable, continued amlodipine, valsartan Hyperlipidemia --not on statin therapy Diverticulitis h/o diverticular bleeds (2004, 2013) --stable Anxiety --held lorazepam PRN, high-risk med for patient over 65 COVID --swab 05/23 negative Minutes to complete discharge: 35 Discharge Summary Problems reviewed: Yes Reason For Visit: UTI/FEVER Current Active Problems COPD bronchitis (Acute) Hematuria (Acute) Hypocalcemia (Acute) Pneumonia (Acute) UTI (urinary tract infection) (Acute) Condition: Improved - Instructions Diet, Activity, Other Instructions: It is important that you follow up with a urologist. You were seen in the hospital by Dr. Zac Teixeira and his contact information is enclosed. Or you may see someone of your own choosing. A precription has been sent to your pharmacy for ceftin, an antibiotic, to treat your urinary tract infection. Take this medication as directed and be sure to finish all the medication. Referrals: Юлия Teixeira MD [Staff Physician] - Disposition: HOME - Home Medications Comprehensive Discharge Medication List: Ambulatory Orders Allopurinol [Zyloprim -] 100 mg PO BID 08/27/14 Amlodipine Besylate [Norvasc -] 10 mg PO DAILY 08/27/14 Clopidogrel Bisulfate [Clopidogrel] 75 mg PO DAILY 08/27/14 Metoprolol Tartrate [Lopressor -] 25 mg PO BID 08/27/14 Tamsulosin HCl [Flomax -] 0.4 mg PO DAILY 08/27/14 Valsartan [Diovan] 320 mg PO DAILY 08/27/14 Insulin Glargine,Hum.rec.anlog [Toujeo Solostar] 0 unit SQ DAILY 10/13/17 Lorazepam [Ativan] 0.5 mg PO Q8H PRN MDD 3 05/23/20 Cefuroxime Axetil [Ceftin -] 500 mg PO BID #13 tablet MDD 2 05/26/20 This patient is new to me today: No Emergency Visit: Yes ED Registration Date: 05/23/20 Care time: The patient presented to the Emergency Department on the above date and was hospitalized for further evaluation of their emergent condition. Critical Care patient: No - Discharge Referral Referred to [facility] No
[2020-05-26 09:32] VITALS: BP 142/77; PULSE 75; TEMP 97
[2020-05-26] MEDS: amLODIPine BESYLATE 10 MG TABLET (FP) PO SCH (09:33)
[2020-05-26] MEDS: TAMSULOSIN HCL 0.4 MG CAP PO SCH (09:33)
[2020-05-26] MEDS: CLOPIDOGREL BISULFATE 75 MG TABLET (FP) PO SCH (09:33)
[2020-05-26] MEDS: ALLOPURINOL 100 MG TABLET (FP) PO SCH (09:33)
[2020-05-26] MEDS: METOPROLOL TARTRATE 25 MG TABLET (FP) PO SCH (09:33)
[2020-05-26] MEDS: VALSARTAN 160 MG TABLET (UD) PO SCH (09:33)
[2020-05-26] MEDS ORDERED: CEFUROXIME AXETIL 500 MG TABLET PO SCH (10:00)
== END 2020-05-26 13:05 | disposition home or self-care (01) | DRG 872 ==
LOC: FER 15:25 → FM/S 18:52
PROVIDERS: ADMIT Internal Medicine; ATTEND Nurse Practitioner Acute Care
DX: A41.9 Sepsis, unspecified organism (principal); J98.11 Atelectasis; Z79.4 Long term (current) use of insulin; I10 Essential (primary) hypertension; E11.9 Type 2 diabetes mellitus without complications; E78.5 Hyperlipidemia, unspecified; I25.10 Atherosclerotic heart disease of native coronary artery without angina pectoris; I25.2 Old myocardial infarction; Z88.0 Allergy status to penicillin; Z87.891 Personal history of nicotine dependence; R33.9 Retention of urine, unspecified; E87.6 Hypokalemia; F41.9 Anxiety disorder, unspecified; N28.1 Cyst of kidney, acquired; R31.9 Hematuria, unspecified; J44.9 Chronic obstructive pulmonary disease, unspecified
CPT/HCPCS: 36415; 70450-TC; 71045-TC-FY; 71260-TC; 74177-TC; 80053; 81003; 81015; 82962; 83605; 83735; 85025; 85610; 85730; 87040; 87086; 87186; 93005; 99285-25; J0131; Q9967; U0003

== ENCOUNTER 2020-11-25 14:17 | Inpatient (IN) | payer OTHER ==
[2020-11-25] MEDS ORDERED: ALBUTEROL SO4 2.5/IPRATROPIUM 0.5 INH SOL 3 ML VIAL.NEB. NEB ONE (15:00)
[2020-11-25] MEDS: ALBUTEROL SO4 2.5/IPRATROPIUM 0.5 INH SOL 3 ML VIAL.NEB. NEB SCH ×2 (15:00→16:14)
[2020-11-25] MEDS ORDERED: CEFTRIAXONE 1,000 MG in DEXTROSE 5%-WATER - 50 ML IVPB ONE (15:38)
[2020-11-25] MEDS ORDERED: AZITHROMYCIN 500 MG TABLET PO ONE (15:38)
[2020-11-25] MEDS ORDERED: methylPREDNISolone NA SUCC 125 MG/2 ML VIAL IVPB ONE (16:08)
[2020-11-25] MEDS ORDERED: AZITHROMYCIN 500 MG TABLET ONE (16:15)
[2020-11-25] MEDS ORDERED: cefTRIAXone SODIUM 1 GM VIAL ONE (16:15)
[2020-11-25] MEDS ORDERED: methylPREDNISolone NA SUCC 125 MG/2 ML VIAL ONE (16:15)
[2020-11-25 16:16] LABS: BASO % 0.6 % (0-2.0); EOS % 1.8 % (0-4.5); HEMATOCRIT 38.9 % (35.4-49); LYMPH % 15.3 % (8-40); MCHC 33.3 g/dl (32.0-35.9); MEAN CELL VOLUME 93.3 fl (80-96); MEAN PLT VOLUME 8.6 fl (7.5-11.1); MONO % 7.2 % (3.8-10.2); NEUT % 75.1 % (42.8-82.8); PLATELET COUNT 159 K/MM3 (134-434); RBC 4.17 M/mm3 (4.00-5.60); RDW 15.2 % (11.9-15.9); WHITE BLOOD COUNT 7.2 K/mm3 (4.0-10.8)
[2020-11-25 16:20] LABS: ALBUMIN 2.7 g/dl (3.4-5.0); BILIRUBIN,DIRECT 0.5 mg/dL (0.0-0.2); BILIRUBIN,TOTAL 1.5 mg/dl (0.2-1); CALCIUM 7.8 mg/dl (8.5-10); CREATININE 1.3 mg/dl (0.55-1.3); TOT PROT 5.9 g/dl (6.4-8.2)
[2020-11-25 16:37] LABS: ACTIVATED PTT 27.4 SECONDS (25.2-36.5)
[2020-11-25 16:41] LABS: INR 1.13 (0.82-1.09); PROTHROMBIN TIME (PATIENT) 12.6 SEC (10.2-13.0)
[2020-11-25 17:46] LABS: VENOUS BASE EXCESS -3.1 mmol/L (-2-2); VENOUS O2 SATURATION 74.8 % (70-80); VENOUS PCO2 48.5 mmHg (38-52); VENOUS PH 7.303 (7.310-7.410)
[2020-11-25] MEDS ORDERED: ALBUTEROL SO4 HFA INHALER IH PRN (22:50)
[2020-11-25] MEDS ORDERED: ALBUTEROL SO4 2.5/IPRATROPIUM 0.5 INH SOL 3 ML VIAL.NEB. NEB PRN (23:20)
[2020-11-25] MEDS ORDERED: FUROSEMIDE 40 MG/4 ML INJECTABLE VIAL IVPUSH ONE (23:51)
[2020-11-25] MEDS ORDERED: FUROSEMIDE 40 MG/4 ML INJECTABLE VIAL ONE (23:53)
[2020-11-26 00:36] VITALS: BMI 32.5
[2020-11-26] MEDS ORDERED: FUROSEMIDE 40 MG/4 ML INJECTABLE VIAL IVPUSH SCH (06:00)
[2020-11-26 08:20] LABS: BASO % 1.1 % (0-2.0); EOS % 0.1 % (0-4.5); HEMOGLOBIN 12.8 GM/dl (11.7-16.9); LYMPH % 8.7 % (8-40); MCH 29.7 pg (25.7-33.7); MEAN CELL VOLUME 92.6 fl (80-96); MEAN PLT VOLUME 8.3 fl (7.5-11.1); MONO % 0.5 % (3.8-10.2); NEUT % 89.6 % (42.8-82.8); PLATELET COUNT 177 K/MM3 (134-434); RBC 4.32 M/mm3 (4.00-5.60); WHITE BLOOD COUNT 5.7 K/mm3 (4.0-10.8)
[2020-11-26 08:22] LABS: ALBUMIN 2.6 g/dl (3.4-5.0); BILIRUBIN,TOTAL 0.9 mg/dl (0.2-1); CALCIUM 7.8 mg/dl (8.5-10); CREATININE 1.8 mg/dl (0.55-1.3); POTASSIUM 4.1 mmol/L (3.5-5.1); TOT PROT 5.6 g/dl (6.4-8.2)
[2020-11-26] MEDS ORDERED: HEPARIN NA (PORCINE) 5,000 UNITS/ML 1ML VIAL SQ SCH ×2 (10:00→14:00)
[2020-11-26] MEDS: methylPREDNISolone NA SUCC 40 MG/1 ML VIAL IVPUSH SCH ×3 (10:34→22:01)
[2020-11-26] MEDS: VALSARTAN 160 MG TABLET PO SCH (10:34)
[2020-11-26] MEDS: TAMSULOSIN HCL 0.4 MG CAP PO SCH (10:34)
[2020-11-26] MEDS: CARVEDILOL 12.5 MG TABLET (FP) PO SCH ×2 (10:35→22:01)
[2020-11-26] MEDS: amLODIPine BESYLATE 10 MG TABLET (FP) PO SCH (10:35)
[2020-11-26] MEDS: ASPIRIN 81 MG CHEWABLE TABLETS PO SCH (10:36)
[2020-11-26] MEDS: ENOXAPARIN NA (PORCINE) 100 MG/1 ML DISP.SYRIN SQ SCH (17:38)
[2020-11-26] MEDS: ALBUTEROL SO4 HFA INHALER IH SCH (22:02)
[2020-11-26] MEDS: INSULIN SLIDING SCALE (NOVOLOG) 1 VIAL SQ SCH (22:02)
[2020-11-27] MEDS: methylPREDNISolone NA SUCC 40 MG/1 ML VIAL IVPUSH SCH ×4 (03:04→21:17)
[2020-11-27] MEDS: ALBUTEROL SO4 HFA INHALER IH SCH ×3 (05:53→21:20)
[2020-11-27] MEDS: ENOXAPARIN NA (PORCINE) 100 MG/1 ML DISP.SYRIN SQ SCH ×2 (05:53→18:37)
[2020-11-27 08:34] LABS: HEMATOCRIT 38.8 % (35.4-49); HEMOGLOBIN 12.8 GM/dl (11.7-16.9); MCH 30.6 pg (25.7-33.7); MCHC 32.9 g/dl (32.0-35.9); MEAN CELL VOLUME 93.1 fl (80-96); PLATELET COUNT 198 K/MM3 (134-434); RBC 4.16 M/mm3 (4.00-5.60); RDW 15.2 % (11.9-15.9); WHITE BLOOD COUNT 12.1 K/mm3 (4.0-10.8)
[2020-11-27 08:44] LABS: CALCIUM 7.6 mg/dl (8.5-10); CREATININE 1.8 mg/dl (0.55-1.3); POTASSIUM 3.8 mmol/L (3.5-5.1)
[2020-11-27] MEDS ORDERED: guaiFENesin/CODEINE 5 ML UNIT-DOSE CUPS PO PRN (10:08)
[2020-11-27] MEDS: CARVEDILOL 12.5 MG TABLET (FP) PO SCH ×2 (10:24→21:17)
[2020-11-27] MEDS: ASPIRIN 81 MG CHEWABLE TABLETS PO SCH (10:24)
[2020-11-27] MEDS: TAMSULOSIN HCL 0.4 MG CAP PO SCH (10:24)
[2020-11-27] MEDS: PANTOPRAZOLE 20 MG TABLET PO SCH (10:24)
[2020-11-27] MEDS: amLODIPine BESYLATE 10 MG TABLET (FP) PO SCH (10:24)
[2020-11-27 10:37] LABS: PLATELET ESTIMATE ADEQUATE
[2020-11-27] MEDS: INSULIN SLIDING SCALE (NOVOLOG) 1 VIAL SQ SCH ×3 (12:11→21:18)
[2020-11-27] MEDS ORDERED: guaiFENesin/CODEINE 10 ML UNIT-DOSE CUPS PO PRN (15:33)
[2020-11-28] MEDS: methylPREDNISolone NA SUCC 40 MG/1 ML VIAL IVPUSH SCH ×4 (02:17→21:32)
[2020-11-28] MEDS: ALBUTEROL SO4 HFA INHALER IH SCH ×3 (05:51→21:32)
[2020-11-28] MEDS: ENOXAPARIN NA (PORCINE) 100 MG/1 ML DISP.SYRIN SQ SCH ×2 (05:51→17:37)
[2020-11-28] MEDS: INSULIN SLIDING SCALE (NOVOLOG) 1 VIAL SQ SCH ×4 (07:05→21:32)
[2020-11-28 09:32] LABS: BASO % 0.4 % (0-2.0); HEMATOCRIT 37.5 % (35.4-49); HEMOGLOBIN 11.7 GM/dl (11.7-16.9); LYMPH % 3.5 % (8-40); MCH 29.6 pg (25.7-33.7); MCHC 31.1 g/dl (32.0-35.9); MEAN CELL VOLUME 95.1 fl (80-96); MEAN PLT VOLUME 8.9 fl (7.5-11.1); MONO % 0.2 % (3.8-10.2); NEUT % 95.9 % (42.8-82.8); PLATELET COUNT 154 K/MM3 (134-434); RBC 3.95 M/mm3 (4.00-5.60); RDW 15.5 % (11.9-15.9); WHITE BLOOD COUNT 11.6 K/mm3 (4.0-10.8)
[2020-11-28] MEDS: TAMSULOSIN HCL 0.4 MG CAP PO SCH (09:48)
[2020-11-28] MEDS: ASPIRIN 81 MG CHEWABLE TABLETS PO SCH (09:49)
[2020-11-28] MEDS: PANTOPRAZOLE 20 MG TABLET PO SCH (09:49)
[2020-11-28] MEDS: CARVEDILOL 12.5 MG TABLET (FP) PO SCH ×2 (09:49→21:32)
[2020-11-28] MEDS: amLODIPine BESYLATE 10 MG TABLET (FP) PO SCH (09:49)
[2020-11-28 12:20] LABS: POTASSIUM 4.3 mmol/L (3.5-5.1)
[2020-11-28 12:23] LABS: BLOOD UREA NITROGEN 47.6 mg/dL (7-18); MAGNESIUM 2.1 mg/dL (1.8-2.4)
[2020-11-28 12:26] LABS: CREATININE 1.7 mg/dL (0.55-1.3)
[2020-11-28 12:27] LABS: BILIRUBIN,TOTAL 0.4 mg/dL (0.2-1)
[2020-11-28 12:33] LABS: ALBUMIN 2.4 g/dl (3.4-5.0); CALCIUM 7.3 mg/dL (8.5-10.1); TOT PROT 5.5 g/dl (6.4-8.2)
[2020-11-29] MEDS: INSULIN SLIDING SCALE (NOVOLOG) 1 VIAL SQ SCH ×4 (06:11→21:06)
[2020-11-29] MEDS: ALBUTEROL SO4 HFA INHALER IH SCH ×3 (06:11→21:05)
[2020-11-29] MEDS: methylPREDNISolone NA SUCC 40 MG/1 ML VIAL IVPUSH SCH ×3 (06:11→21:05)
[2020-11-29] MEDS: ENOXAPARIN NA (PORCINE) 100 MG/1 ML DISP.SYRIN SQ SCH ×2 (06:11→18:16)
[2020-11-29 07:46] LABS: MEAN CELL VOLUME 93.3 fl (80-96)
[2020-11-29 07:53] LABS: HEMATOCRIT 36.6 % (35.4-49); HEMOGLOBIN 11.7 GM/dl (11.7-16.9); MCH 29.8 pg (25.7-33.7); MEAN PLT VOLUME 8.4 fl (7.5-11.1); PLATELET COUNT 149 K/MM3 (134-434); RBC 3.92 M/mm3 (4.00-5.60); RDW 15.7 % (11.9-15.9); WHITE BLOOD COUNT 9.1 K/mm3 (4.0-10.8)
[2020-11-29 09:30] LABS: EPITHELIAL CELLS FEW /hpf
[2020-11-29 10:11] LABS: POTASSIUM 4.3 mmol/L (3.5-5.1)
[2020-11-29 10:14] LABS: BLOOD UREA NITROGEN 50.2 mg/dL (7-18); MAGNESIUM 2.3 mg/dL (1.8-2.4)
[2020-11-29 10:17] LABS: CREATININE 1.5 mg/dL (0.55-1.3)
[2020-11-29 10:18] LABS: BILIRUBIN,TOTAL 0.4 mg/dL (0.2-1); TOT PROT 5.3 g/dl (6.4-8.2)
[2020-11-29 10:31] LABS: ALBUMIN 2.4 g/dl (3.4-5.0); CALCIUM 7.3 mg/dL (8.5-10.1)
[2020-11-29] MEDS: PANTOPRAZOLE 20 MG TABLET PO SCH (11:42)
[2020-11-29] MEDS: VALSARTAN 160 MG TABLET PO SCH (11:42)
[2020-11-29] MEDS: ASPIRIN 81 MG CHEWABLE TABLETS PO SCH (11:42)
[2020-11-29] MEDS: amLODIPine BESYLATE 10 MG TABLET (FP) PO SCH (11:42)
[2020-11-29] MEDS: TAMSULOSIN HCL 0.4 MG CAP PO SCH (11:42)
[2020-11-29 11:44] LABS: PLATELET ESTIMATE ADEQUATE
[2020-11-29] MEDS: CARVEDILOL 12.5 MG TABLET (FP) PO SCH ×2 (11:45→21:06)
[2020-11-30] MEDS: methylPREDNISolone NA SUCC 40 MG/1 ML VIAL IVPUSH SCH (06:10)
[2020-11-30] MEDS: ALBUTEROL SO4 HFA INHALER IH SCH ×3 (06:10→21:14)
[2020-11-30] MEDS: ENOXAPARIN NA (PORCINE) 100 MG/1 ML DISP.SYRIN SQ SCH ×2 (06:10→18:08)
[2020-11-30] MEDS: INSULIN SLIDING SCALE (NOVOLOG) 1 VIAL SQ SCH ×4 (06:10→21:14)
[2020-11-30 07:32] LABS: BASO % 0.7 % (0-2.0); HEMATOCRIT 39.3 % (35.4-49); HEMOGLOBIN 12.4 GM/dl (11.7-16.9); MCH 29.4 pg (25.7-33.7); MCHC 31.5 g/dl (32.0-35.9); MEAN CELL VOLUME 93.2 fl (80-96); MEAN PLT VOLUME 8.1 fl (7.5-11.1); MONO % 1.8 % (3.8-10.2); NEUT % 93.5 % (42.8-82.8); PLATELET COUNT 151 K/MM3 (134-434); RBC 4.22 M/mm3 (4.00-5.60); RDW 14.9 % (11.9-15.9); WHITE BLOOD COUNT 7.6 K/mm3 (4.0-10.8)
[2020-11-30 07:48] LABS: CALCIUM 7.2 mg/dl (8.5-10); POTASSIUM 4.6 mmol/L (3.5-5.1)
[2020-11-30 08:09] LABS: ALBUMIN 2.6 g/dl (3.4-5.0); CREATININE 1.4 mg/dl (0.55-1.3); MAGNESIUM 2.3 mg/dL (1.8-2.4); TOT PROT 5.5 g/dl (6.4-8.2)
[2020-11-30] MEDS: CARVEDILOL 12.5 MG TABLET (FP) PO SCH ×2 (09:39→21:14)
[2020-11-30] MEDS: amLODIPine BESYLATE 10 MG TABLET (FP) PO SCH (09:40)
[2020-11-30] MEDS: TAMSULOSIN HCL 0.4 MG CAP PO SCH (09:40)
[2020-11-30] MEDS: VALSARTAN 160 MG TABLET PO SCH (09:40)
[2020-11-30] MEDS: ASPIRIN 81 MG CHEWABLE TABLETS PO SCH (09:40)
[2020-11-30] MEDS: PANTOPRAZOLE 20 MG TABLET PO SCH (09:40)
[2020-11-30] MEDS ORDERED: predniSONE 20 MG TABLET (UD) PO ONE (11:15)
[2020-12-01 05:43] VITALS: BP 155/98; PULSE 86; TEMP 97.6
[2020-12-01] MEDS: ALBUTEROL SO4 HFA INHALER IH SCH ×2 (06:00→14:10)
[2020-12-01] MEDS: ENOXAPARIN NA (PORCINE) 100 MG/1 ML DISP.SYRIN SQ SCH (07:03)
[2020-12-01] MEDS: INSULIN SLIDING SCALE (NOVOLOG) 1 VIAL SQ SCH ×2 (07:04→12:30)
[2020-12-01] MEDS: TAMSULOSIN HCL 0.4 MG CAP PO SCH (09:00)
[2020-12-01] MEDS: CARVEDILOL 12.5 MG TABLET (FP) PO SCH (09:30)
[2020-12-01] MEDS: amLODIPine BESYLATE 10 MG TABLET (FP) PO SCH (09:30)
[2020-12-01] MEDS: PANTOPRAZOLE 20 MG TABLET PO SCH (09:30)
[2020-12-01] MEDS: VALSARTAN 160 MG TABLET PO SCH (09:30)
[2020-12-01] MEDS: ASPIRIN 81 MG CHEWABLE TABLETS PO SCH (09:30)
== END 2020-12-01 14:23 | disposition home or self-care (01) | DRG 291 ==
LOC: FER 14:17 → FM/S 20:11 → UNDOADMIN 23:42 → FM/S 12-01 05:54
PROVIDERS: ADMIT Hospitalist; ATTEND Nurse Practitioner Acute Care
DX: I11.0 Hypertensive heart disease with heart failure (principal); J18.9 Pneumonia, unspecified organism; J96.01 Acute respiratory failure with hypoxia; I50.21 Acute systolic (congestive) heart failure; J44.1 Chronic obstructive pulmonary disease with (acute) exacerbation; N17.9 Acute kidney failure, unspecified; E11.9 Type 2 diabetes mellitus without complications; Z79.4 Long term (current) use of insulin; E78.5 Hyperlipidemia, unspecified; I25.10 Atherosclerotic heart disease of native coronary artery without angina pectoris; I25.2 Old myocardial infarction; I44.7 Left bundle-branch block, unspecified; Z88.0 Allergy status to penicillin; N40.0 Benign prostatic hyperplasia without lower urinary tract symptoms; I48.91 Unspecified atrial fibrillation; I27.20 Pulmonary hypertension, unspecified; K57.90 Diverticulosis of intestine, part unspecified, without perforation or abscess without bleeding; R31.9 Hematuria, unspecified
CPT/HCPCS: 36415; 71045-TC-FY; 71275-TC; 76775-TC; 76856-TC; 80048; 80053; 81003; 81015; 82248; 82550; 82728; 82803; 82962; 83605; 83615; 83735; 83880; 84300; 84484; 85025; 85379; 85610; 85730; 86140; 86769; 87040; 87086; 93005; 93306-TC; 97116-GP; 97162-GP; 99285-25; C9803; J1644; Q9967; U0003